=== PATIENT | female | born 1965 | race African-American/Black ===

== ENCOUNTER → 2016-05-27 | Outpatient (CLI) | payer OTHER ==
[~2016-05-27] MED LIST: BENZ2TAB PO; BUSP15TA PO; CIPR-9 PO; DEXA4TAB PO; DIFL150T PO; FURO1TAB62 PO; IBUP-988 PO; IBUP800T23 PO; LIDO0.052; LISI10TA3 PO; MACR100C2 PO; METF500T PO; METO10TA PO; MIRTA15 PO; OMEP20TA PO; ONDA1TAB17 PO; ONDA4INJ2 IM; PEGF6P SQ; PERC5TAB12 PO; PERI8.6T PO; PROM25TA10 PO; PROM25TA5 PO; QUET1TAB10 PO; TRAM50TA PO; ZYPR10TA PO
[2016-05-27 13:46] LABS: BASOPHIL # 0.1 TH/MM3 (0-0.2); EOSINOPHIL # 0.2 TH/MM3 (0-0.4); EOSINOPHIL % 2.2 % (0.0-4.0); HEMATOCRIT 36.4 % (35.0-46.0); HEMO FLAGS DIFF FINAL; LYMPH % 33.9 % (9.0-44.0); LYMPHOCYTE # 2.5 TH/MM3 (1.0-4.8); MEAN CELL VOLUME 88.6 FL (80.0-100.0); MEAN CORPUSCULAR HEMOGLOBIN 29.6 PG (27.0-34.0); MEAN CORPUSCULAR HGB CONC 33.4 % (32.0-36.0); MONO % 9.1 % (0.0-8.0); NEUT % 53.8 % (16.0-70.0); PLATELET COUNT 385 TH/MM3 (150-450); RED BLOOD COUNT 4.11 MIL/MM3 (4.00-5.30); RED CELL DISTRIBUTION WIDTH 14.6 % (11.6-17.2); WHITE BLOOD COUNT 7.4 TH/MM3 (4.0-11.0)
[2016-05-27 13:52] LABS: BACTERIA, URINE MOD /hpf; BLOOD, URINE NEG (NEG); GLUCOSE,URINE NEG (NEG); KETONE, URINE NEG (NEG); MUCUS URINE FEW /lpf (OCC); NITRITE,URINE NEG (NEG); SQUAMOUS EPITHELIAL CELL URINE <1 /hpf (0-5); URINE COLOR YELLOW (YELLW/STRAW)
[2016-05-27 13:58] LABS: COMMENT (UR) CULTURE INDICATED; CULTURE IF INDICATED CULTURE INDICATED
[2016-05-27 14:17] LABS: ALKALINE PHOSPHATASE 73 U/L (45-117); ALT (GPT) 13 U/L (10-53); ANION GAP 8 MEQ/L (5-15); AST (GOT) 12 U/L (15-37); BICARBONATE 27.3 MEQ/L (21.0-32.0); BLOOD UREA NITROGEN 6 MG/DL (7-18); CHLORIDE 107 MEQ/L (98-107); GLOMERULAR FILTRATION RATE 115 ML/MIN (>89); GLUCOSE,FASTING 83 MG/DL (74-99); LDL CHOLESTEROL 116 MG/DL (0-99); POTASSIUM 3.5 MEQ/L (3.5-5.1); SODIUM (NA) 142 MEQ/L (136-145); TOTAL BILIRUBIN ADULT 0.5 MG/DL (0.2-1.0)
[2016-05-27 16:28] LABS: HEMOGLOBIN A1a 1.2 %; HEMOGLOBIN A1b 0.8 %; HEMOGLOBIN Ao 84.8 %; HEMOGLOBIN F 1.4 %; HEMOGLOBIN LA1C 1.9 %; HEMOGLOBIN P3 3.6 %
== END ==
LOC: CLAB 13:21
PROVIDERS: ATTEND Family Medicine
DX: E11.9 Type 2 diabetes mellitus without complications (principal); Z23 Encounter for immunization; B37.41 Candidal cystitis and urethritis; Z72.0 Tobacco use; F31.9 Bipolar disorder, unspecified; R82.90 Unspecified abnormal findings in urine
CPT/HCPCS: 36415; 80053; 80061; 81001; 83036; 84443; 85025; 87077; 87086; 87186

== ENCOUNTER → 2016-07-21 | Outpatient (CLI) | payer OTHER ==
[~2016-07-21] MED LIST changes: -CIPR-9 PO; -DIFL150T PO
[2016-07-21 10:55] LABS: BACTERIA, URINE RARE /hpf; BLOOD, URINE NEG (NEG); COMMENT (UR) CULTURE INDICATED; CULTURE IF INDICATED CULTURE INDICATED; GLUCOSE,URINE NEG (NEG); KETONE, URINE NEG (NEG); MUCUS URINE FEW /lpf (OCC); NITRITE,URINE NEG (NEG); SQUAMOUS EPITHELIAL CELL URINE 2 /hpf (0-5); URINE COLOR YELLOW (YELLW/STRAW)
--- NOTE | 2016-07-21 11:16 | RADRPT ---
EXAM DATE/TIME: 07/21/2016 10:36 [facility] COMPARISON: No previous studies available for comparison. INDICATIONS : Weight loss. Patient c/o constipation and bloating MEDICAL HISTORY : None. SURGICAL HISTORY : Tubal ligation. ENCOUNTER: Initial ACUITY: 2 months PAIN SCORE: 5/10 LOCATION: Bilateral Abdomen. FINDINGS: Supine view of the abdomen was performed. The abdominal bowel gas pattern is normal. No abnormal ma sses, calcifications, or organomegaly is seen. Constipation. The osseous structures are unremarkable. CONCLUSION: No acute abnormalities. Sharan Galicia MD on July 21, 2016 at 11:15 Board Certified Radiologist. This report was verified electronically.
== END ==
LOC: CLAB 10:05
PROVIDERS: ATTEND Family Medicine
DX: R10.9 Unspecified abdominal pain (principal); N39.0 Urinary tract infection, site not specified
CPT/HCPCS: 74000; 81001; 87086

== ENCOUNTER → 2016-07-28 | Outpatient (CLI) | payer OTHER ==
[2016-07-28 12:08] LABS: ALT (GPT) 10 U/L (10-53); AST (GOT) 17 U/L (15-37); BETA HCG QUANT 2 MIU/ML (0-5); GAMMA GT LESS THAN 3 U/L (5-55)
== END ==
LOC: CLAB 11:12
PROVIDERS: ATTEND Family Medicine
DX: R14.0 Abdominal distension (gaseous) (principal); R68.81 Early satiety; R63.4 Abnormal weight loss
CPT/HCPCS: 36415; 82977; 84450; 84460; 84702

== ENCOUNTER → 2016-07-29 | Outpatient (CLI) | payer OTHER ==
[~2016-07-29] MED LIST changes: -OMEP20TA PO
--- NOTE | 2016-07-29 10:59 | RADRPT ---
EXAM DATE/TIME: 07/29/2016 09:28 [facility] COMPARISON: No previous studies available for comparison. INDICATIONS : Distended abdomen. MEDICAL HISTORY : Chronic obstructive pulmonary disease. Hypertension. Bipolar. Hyperglycemia. Cervical cancer. Gena betic. Schizophrenic. Substance abuse. SURGICAL HISTORY : Tubal ligation. ENCOUNTER: Initial ACUITY: 3 weeks PAIN SCORE: 0/10 LOCATION: Bilateral upper quadrant MEASUREMENTS: LIVER: 20.4 cm length COMMON DUCT: 4 mm RIGHT KIDNEY: 12.5 x 5.4 x 5.0 cm SPLEEN: 9.4 cm length FINDINGS: LIVER: Liver is enlarged. Normal echotexture without focal lesion or ductal dilatation. Large amount of abdo mirna ascites. COMMON DUCT: No intraluminal mass or stone visualized. GALLBLADDER: Contains no stones, demonstrates no wall thickening or pericholecystic fluid. PANCREAS: The visualized portions are within normal limits. RIGHT KIDNEY: No hydronephrosis, stone or mass. SPLEEN: No focal lesion. Cystic structure right pelvis measures 36 x 36 x 35 mm. CONCLUSION: 1. Large amount of abdominal ascites. 2. Cystic structure right pelvis measures 36 x 36 x 35 mm. 3. Liver is mildly large. Sharan Galicia MD on July 29, 2016 at 10:54 Board Certified Radiologist. This report was verified electronically.
== END ==
LOC: HRAD 08:50
PROVIDERS: ATTEND Family Medicine
DX: R14.0 Abdominal distension (gaseous) (principal)
CPT/HCPCS: 76705

== ENCOUNTER 2016-07-31 10:22 | Emergency (ER) | payer OTHER ==
[~2016-07-31] VITALS: Ht 160 cm; Wt 68.0 kg
[~2016-07-31 10:22] MED LIST changes: -DEXA4TAB PO; -FURO1TAB62 PO; -IBUP-988 PO; -LIDO0.052; -MACR100C2 PO; -METO10TA PO; -MIRTA15 PO; -ONDA1TAB17 PO; -ONDA4INJ2 IM; -PEGF6P SQ; -PERC5TAB12 PO; -PROM25TA10 PO; -PROM25TA5 PO; -TRAM50TA PO
[2016-07-31 10:24] VITALS: BP 117/73; PULSE 98; RESP 17; TEMP 98.1; O2SAT 95
[2016-07-31] MEDS ORDERED: SODIUM CHLOR 0.9% 1000 ML INJ 1,000 ML IV SCH (11:21)
[2016-07-31] MEDS ORDERED: ONDANSETRON HCL 4 MG/2 ML VIAL IV PUSH ONE (11:30)
[2016-07-31] MEDS ORDERED: MORPHINE SULFATE 4 MG/ML INJ IV PUSH ONE (11:30)
[2016-07-31] MEDS ORDERED: FUROSEMIDE 20 MG/2 ML VIAL IV PUSH ONE (11:30)
--- NOTE | 2016-07-31 11:59 | PD ---
HPI Chief Complaint: Abdominal Pain Time Seen by Provider: 11:51 Travel History International Travel<30 days: No Contact w/Intl Traveler<30days: No Traveled to known affect area: No History of Present Illness HPI 51-year-old female that presents to the ED for evaluation of increased swelling and pain in her abdomen. Per patient she has a history of ascites and she follows with Dr. Lloyd. Patient has an order from Dr. Lloyd to have a paracentesis done but per patient the pain is getting too severe for her to wait and she came here instead. Patient comes here with a form that says that she is to have an ultrasound-guided abdomen paracentesis to be diagnostic and therapeutic. Patient states that she is compliant with her medications. Per patient she doesn't know what she is having this fluid build up but when I ask her if she has cirrhosis she states that she doesn't know. She does state having compliant with her medications. Per patient the pain is 8 out of 10. Per patient she's taken ibuprofen for discomfort with minimal relief. Per patient she was help to get her paracentesis done. She denies any bowel movement or urinary issues. She denies any chest pain or shortness of breath. Per patient the pain feels like a pressure. Denies any fevers chills or sweats. Pain does not radiate. Stays in the abdomen. Nothing makes it better or worse. PFSH Past Medical History Hx Anticoagulant Therapy: Yes Arthritis: Yes Asthma: Yes Bipolar Disorder: Yes Anxiety: Yes Depression: Yes Heart Rhythm Problems: No (DENIES) Cancer: Yes (CERVIX) Cardiac Catheterization: No Cardiovascular Problems: Yes High Cholesterol: No Chest Pain: Yes Congestive Heart Failure: No COPD: Yes Diabetes: Yes Patient Takes Glucophage: Yes Diminished Hearing: No Gastrointestinal Disorders: Yes GERD: Yes Headaches: Yes Heparin Induced Thrombocytopen: No Hypertension: Yes Implanted Vascular Access Dvce: No Respiratory: Yes Immunizations Current: Yes Migraines: Yes Schizophrenia: Yes Seizures: Yes ?: Not Menopausal: Yes : 4 Para: 3 Miscarriage: 1 Tubal Ligation: Yes Past Surgical History Coronary Artery Bypass Graft: No Neurologic Surgery: No Other Surgery: No Family History Family Myocardial Infarction: No Social History Alcohol Use: No (hx of etoh abuse, quit 2012) Tobacco Use: Yes (0.5 ppd) Substance Use: No (hx of crack last used last month 2-2017) Allergies-Medications (Allergen,Severity, Reaction): Coded Allergies: No Known Allergies (Verified , 07/02/16) Reported Meds & Prescriptions Reported Meds & Active Scripts Active Lisa-Colace (Sennosides-Docusate Sodium) 8.6-50 Mg Tab 2 Tab PO BID Lisinopril 10 Mg Tab 10 Mg PO DAILY Reported Ibuprofen 800 Mg Tab 800 Mg PO TID Buspirone (Buspirone HCl) 15 Mg Tab 15 Mg PO TID Benztropine (Benztropine Mesylate) 2 Mg Tab 2 Mg PO BID Metformin (Metformin HCl) 500 Mg Tab 500 Mg PO BIDPC With meals Zyprexa (Olanzapine) 10 Mg Tab 10 Mg PO BID Quetiapine (Quetiapine Fumarate) 300 Mg Tab 300 Mg PO HS Review of Systems General / Constitutional: No: Fever, Chills, Weight Gain, Weight Loss, Other Eyes: No: Diploplia, Blurred Vision, Photophobia, Drainage, Redness, Foreign Body Sensation, Pain, Tearing, Blind Spots, Visual changes, Blindness, Other HENT: No: Headaches, Vertigo, Lightheadedness, Sore Throat, Rhinitis, Rhinorrhea, Congestion, Nosebleed, Neck Stiffness, Neck Pain, Masses, Gingival Bleeding, Dental Difficulties, Ear Discharge, Earache, Other Cardiovascular: No: Chest Pain or Discomfort, Palpitations, Irregular Rhythm, Tachycardia, Diaphoresis, Syncope, Dyspnea on exertion, Varicosities, Edema, Cyanosis, Varicosities, Phlebitis, Claudication, Other Respiratory: No: Cough, Shortness of Breath, Wheezing, Sneezing, Orthopnea, Hemoptysis, Stridor, Night Sweats, Pleuritic Pain, Other Gastrointestinal: Positive: Abdominal Pain, Other (ascitis), No: Nausea, Vomiting, Diarrhea, Hematemesis, Hematochezia, Constipation, Changes in Bowel Habits, Indigestion, Dysphagia, Loss of Appetite Genitourinary: No: Urgency, Frequency, Dysuria, Nocturia, Hematuria, Decreased Urinary Output, Oliguria, Hesitancy, Dribbling, Incontinence, Pelvic Pain, Flank Pain, Dyspareunia, Discharge, Dysmenorrhea, Menorrhagia, Metorrhagia, Vaginal Bleeding, Other Musculoskeletal: No: Myalgias, Arthralgias, Limited ROM, Weakness, Cramping, Edema, Pain, Atrophy, Other Skin: No Rash, No Itching, No Dryness, No Lumps, No Hives, No Change in Pigmentation, No Change in nails, No Alopecia, No Lesions, No Breast Lumps, No Breast Tenderness, No Breast Swelling, No Other Neurologic: No: Weakness, Dizziness, Syncope, Focal Abnormalities, Coordination Problem, Tremor, Ataxia, Headache, Change in Mentation, Slurred Speech, Paresthesia, Incontinence, Seizures, Sensory Disturbance, Other Psychiatric: No: Anxiety, Depression, Suicidal Ideations, Disorder of Thought, Mood Disorder, Substance Abuse, Homicidal Ideation, Other Endocrine: No: Heat Intolerance, Cold Intolerance, Polyuria, Polydipsia, Other Hematologic/Lymphatic: No: Easy Bruising, Lymph Node Enlargement, Other Physical Exam Narrative GENERAL: SKIN: Warm and dry. HEAD: Atraumatic. Normocephalic. EYES: Pupils equal and round. No scleral icterus. No injection or drainage. ENT: No nasal bleeding or discharge. Mucous membranes pink and moist. Tongue is midline. No uvula deviation. NECK: Trachea midline. No JVD. CARDIOVASCULAR: Regular rate and rhythm. No murmurs, S3, S4 RESPIRATORY: No accessory muscle use. Clear to auscultation. Breath sounds equal bilaterally. GASTROINTESTINAL: Abdomen soft, non-tender, distended with obvious fluid felt. Hepatic and splenic margins not palpable. MUSCULOSKELETAL: Extremities without clubbing, cyanosis, or edema. No obvious deformities. Full range of motion of the upper and lower extremities bilaterally. 2+ pulses bilaterally. NEUROLOGICAL: Awake and alert. No obvious cranial nerve deficits. Motor grossly within normal limits. Five out of 5 muscle strength in the arms and legs. Normal speech. PSYCHIATRIC: Appropriate mood and affect; insight and judgment normal. Data Data Last Documented VS Vital Signs Date Time Temp Pulse Resp B/P Pulse Ox O2 Delivery O2 Flow Rate FiO2 07/31/16 12:28 18 98 Room Air 07/31/16 10:24 98.1 98 117/73 Orders Complete Blood Count With Diff (07/31/16 11:21) Comprehensive Metabolic Panel (07/31/16 11:21) Lipase (07/31/16 11:21) Prothrombin Time / Inr (Pt) (07/31/16 11:21) Act Partial Throm Time (Ptt) (07/31/16 11:21) Iv Access Insert/Monitor (07/31/16 11:21) Ecg Monitoring (07/31/16 11:21) Oximetry (07/31/16 11:21) Sodium Chlor 0.9% 1000 Ml Inj (Ns 1000 M (07/31/16 11:21) Morphine Inj (Morphine Inj) (07/31/16 11:30) Ondansetron Inj (Zofran Inj) (07/31/16 11:30) Furosemide Inj (Lasix Inj) (07/31/16 11:30) Ct Abd/Pel W Iv Contrast(Rout) (07/31/16 ) Labs Laboratory Tests Test 07/31/16 12:10 White Blood Count 7.2 TH/MM3 Red Blood Count 3.52 MIL/MM3 Hemoglobin 10.3 GM/DL Hematocrit 30.9 % Mean Corpuscular Volume 87.8 FL Mean Corpuscular Hemoglobin 29.2 PG Mean Corpuscular Hemoglobin 33.2 % Concent Red Cell Distribution Width 14.3 % Platelet Count 541 TH/MM3 Mean Platelet Volume 7.4 FL Neutrophils (%) (Auto) 66.1 % Lymphocytes (%) (Auto) 22.7 % Monocytes (%) (Auto) 7.7 % Eosinophils (%) (Auto) 2.8 % Basophils (%) (Auto) 0.7 % Neutrophils # (Auto) 4.7 TH/MM3 Lymphocytes # (Auto) 1.6 TH/MM3 Monocytes # (Auto) 0.5 TH/MM3 Eosinophils # (Auto) 0.2 TH/MM3 Basophils # (Auto) 0.0 TH/MM3 CBC Comment DIFF FINAL Differential Comment Sodium Level 140 MEQ/L Potassium Level 4.0 MEQ/L Chloride Level 106 MEQ/L Carbon Dioxide Level 27.0 MEQ/L Anion Gap 7 MEQ/L Blood Urea Nitrogen 8 MG/DL Creatinine 0.68 MG/DL Estimat Glomerular Filtration 110 ML/MIN Rate Random Glucose 87 MG/DL Calcium Level 8.6 MG/DL Total Bilirubin 0.2 MG/DL Aspartate Amino Transf 16 U/L (AST/SGOT) Alanine Aminotransferase 9 U/L (ALT/SGPT) Alkaline Phosphatase 84 U/L Total Protein 8.3 GM/DL Albumin 2.6 GM/DL Lipase 63 U/L [facility] Medical Decision Making Medical Screen Exam Complete: Yes Emergency Medical Condition: Yes Medical Record Reviewed: Yes Interpretation(s) CBC & BMP Diagram 07/31/16 12:10 LFTs WNL Lipase WNL Differential Diagnosis Ascites versus liver cirrhosis versus acute on chronic pain versus infection Narrative Course 51-year-old female that presents to the ED for evaluation of abdominal discomfort with fluid overload. Patient was properly examined and was found to have signs and symptoms consistent with ascites. She is followed by Dr. Lloyd at the [facility] and she actually has already or ultrasound- guided abdominal paracentesis. There is no date of when she is supposed to get this. Patient states that she is mainly here for pain control. Patient was given something for pain here as well as some Lasix to help with the fluid. Vitals and physical exam at this time are reassuring. I recommend patient that she calls or just goes to the outpatient radiology/testing center to get this done in the next couple of days so she can get relief from her symptoms. She agrees and understands. Case was discussed in my attending Dr. Fairchild who agrees with discharge and follow-up outpatient. Patient was given a short prescription for tramadol for pain. She was instructed to try to avoid ibuprofen as this could make the ascites worse. Follow-up with PCP. See ED if worsening symptoms. Diagnosis Primary Impression: Ascites Qualified Code: R18.8 - Other ascites Patient Instructions: General Instructions, Narcotic given in the ED Additional Instructions: Follow with outpatient radiology to get procedure done. Call today or [facility] to get this done today or tomorrow. Take pain medication as prescribed. Follow with PCP. See ED for any worsening symptoms. Med/Other Pt SpecificInfo: Prescription(s) given Disposition: DISCHARGE HOME Condition: Stable Rosales Galeas Jul 31, 2016 11:59
[2016-07-31 12:28] VITALS: RESP 18; O2SAT 98
[2016-07-31 12:28] LABS: AUTOMATED NEUTROPHIL # 4.7 TH/MM3 (1.8-7.7); BASOPHIL % 0.7 % (0.0-2.0); EOSINOPHIL # 0.2 TH/MM3 (0-0.4); EOSINOPHIL % 2.8 % (0.0-4.0); HEMATOCRIT 30.9 % (35.0-46.0); HEMO FLAGS DIFF FINAL; LYMPH % 22.7 % (9.0-44.0); LYMPHOCYTE # 1.6 TH/MM3 (1.0-4.8); MEAN CELL VOLUME 87.8 FL (80.0-100.0); MEAN CORPUSCULAR HEMOGLOBIN 29.2 PG (27.0-34.0); MEAN CORPUSCULAR HGB CONC 33.2 % (32.0-36.0); MONO % 7.7 % (0.0-8.0); NEUT % 66.1 % (16.0-70.0); PLATELET COUNT 541 TH/MM3 (150-450); RED BLOOD COUNT 3.52 MIL/MM3 (4.00-5.30); RED CELL DISTRIBUTION WIDTH 14.3 % (11.6-17.2); WHITE BLOOD COUNT 7.2 TH/MM3 (4.0-11.0)
[2016-07-31 12:46] LABS: ANION GAP 7 MEQ/L (5-15); AST (GOT) 16 U/L (15-37); BLOOD UREA NITROGEN 8 MG/DL (7-18); CHLORIDE 106 MEQ/L (98-107); GLOMERULAR FILTRATION RATE 110 ML/MIN (>89); SODIUM (NA) 140 MEQ/L (136-145)
[2016-07-31 12:51] LABS: ALKALINE PHOSPHATASE 84 U/L (45-117); ALT (GPT) 9 U/L (10-53); TOTAL BILIRUBIN ADULT 0.2 MG/DL (0.2-1.0)
[2016-07-31] MEDS ORDERED: TRAM50TA PO (13:13)
[2016-07-31 13:18] LABS: APTT (PATIENT) 26.3 SEC (24.3-30.1); INTERNATIONAL NORMALIZED RATIO 1.1 RATIO; PROTHROMBIN TIME - PATIENT 11.7 SEC (9.8-11.6)
[2016-08-11] MEDS ORDERED: FURO1TAB62 PO (11:20)
[2016-08-11] MEDS ORDERED: METF500T PO (11:20)
[2016-08-11] MEDS ORDERED: LISI10TA3 PO (11:20)
[2016-09-04] MEDS ORDERED: IBUP-988 PO (10:09)
[2016-10-30] MEDS ORDERED: PEGF6P SQ (16:26)
[2016-10-30] MEDS ORDERED: PROM25TA10 PO (16:26)
[2016-10-30] MEDS ORDERED: ONDA4INJ2 IM (16:56)
[2016-11-11] MEDS ORDERED: MIRTA15 PO (11:24)
[2016-11-11] MEDS ORDERED: IBUP800T23 PO (12:46)
== END 2016-07-31 13:46 | disposition home or self-care (01) ==
LOC: NEPE 10:22
DX: R18.8 Other ascites (principal); F17.210 Nicotine dependence, cigarettes, uncomplicated; E11.9 Type 2 diabetes mellitus without complications; I10 Essential (primary) hypertension; Z79.84 Long term (current) use of oral hypoglycemic drugs; Z79.01 Long term (current) use of anticoagulants
CPT/HCPCS: 80053; 83690; 85025; 85610; 85730; 96374; 96375; 99284; J1940; J2270; J2405; J7030

== ENCOUNTER 2016-07-31 14:54 | Day surgery (SDC) | payer OTHER ==
[~2016-07-31 14:54] MED LIST changes: +TRAM50TA PO
[2016-07-31 15:44] VITALS: BP 112/73; PULSE 94; RESP 16; TEMP 99.6; O2SAT 96
[2016-07-31 17:05] VITALS: BP 133/90; PULSE 88; RESP 18; TEMP 98.9; O2SAT 94
[2016-07-31 17:20] VITALS: BP 141/90; PULSE 88; RESP 18; O2SAT 94
--- NOTE | 2016-07-31 17:37 | RADRPT ---
EXAM DATE/TIME: 07/31/2016 15:45 [facility] COMPARISON: No previous studies available for comparison. INDICATIONS : Ascites. MEDICAL HISTORY : Chronic obstructive pulmonary disease. Hypertension. Bipolar. Hyperglycemia. Cervical cancer. Diabeti c. Schizophrenic. Substance abuse. SURGICAL HISTORY : Tubal ligation. ENCOUNTER: Initial ACUITY: 1 month PAIN SCORE: 8/10 LOCATION: Left lower quadrant FLUID: Total volume of 4100 cc of reddish yellow. fluid was removed. Fluid was sent to lab for ordered studies. Post procedure scanning reveals no hematoma or other complication. TECHNIQUE: 1. Ultrasound guidance for abdominal paracentesis. 2. Paracentesis. The risks, benefits, and alternatives to ultrasound guided paracentesis were explained to the patient in detail including the risk of bleeding and infection. Written and verbal informed consent was obt ained. With the patient on the ultrasound table, ultrasound imaging was used to select the most appropriate approach for paracentesis. Overlying skin was prepped and draped in the usual sterile fashion and wi th a local anesthetic, a dermatotomy was made with an 11 blade scalpel. A 6 [place] [id number] ca theter was introduced into the peritoneal cavity and fluid was collected. The patient tolerated the procedure well and left the ultrasound suite in stable condition. CONCLUSION: Uncomplicated ultrasound guided paracentesis. There is a small volume of residual fluid present at t he end of the procedure. Martin Mckenzie MD on July 31, 2016 at 17:35 Board Certified Radiologist. This report was verified electronically.
[2016-08-11] MEDS ORDERED: FURO1TAB62 PO (11:20)
[2016-08-11] MEDS ORDERED: METF500T PO (11:20)
[2016-08-11] MEDS ORDERED: LISI10TA3 PO (11:20)
[2016-09-04] MEDS ORDERED: IBUP-988 PO (10:09)
[2016-10-30] MEDS ORDERED: PEGF6P SQ (16:26)
[2016-10-30] MEDS ORDERED: PROM25TA10 PO (16:26)
[2016-10-30] MEDS ORDERED: ONDA4INJ2 IM (16:56)
[2016-11-11] MEDS ORDERED: MIRTA15 PO (11:24)
[2016-11-11] MEDS ORDERED: IBUP800T23 PO (12:46)
== END 2016-07-31 17:45 | disposition home or self-care (01) ==
LOC: HRAD 14:54
PROVIDERS: ATTEND Family Medicine
DX: R18.8 Other ascites (principal); I10 Essential (primary) hypertension; E11.9 Type 2 diabetes mellitus without complications; J44.9 Chronic obstructive pulmonary disease, unspecified; Z85.41 Personal history of malignant neoplasm of cervix uteri
CPT/HCPCS: 49083; 82042; 82945; 83615; 84157; 87070; 87205; C1729

== ENCOUNTER → 2016-07-31 | Outpatient (CLI) | payer OTHER ==
[2016-07-31 08:42] LABS: PROTHROMBIN TIME - PATIENT 11.6 SEC (9.8-11.6)
[2016-07-31 09:37] LABS: AUTOMATED NEUTROPHIL # 5.5 TH/MM3 (1.8-7.7); BASOPHIL # 0.1 TH/MM3 (0-0.2); BASOPHIL % 1.1 % (0.0-2.0); EOSINOPHIL # 0.2 TH/MM3 (0-0.4); EOSINOPHIL % 2.5 % (0.0-4.0); HEMATOCRIT 31.3 % (35.0-46.0); HEMO FLAGS DIFF FINAL; LYMPH % 23.7 % (9.0-44.0); LYMPHOCYTE # 2.1 TH/MM3 (1.0-4.8); MEAN CELL VOLUME 88.3 FL (80.0-100.0); MEAN CORPUSCULAR HEMOGLOBIN 29.3 PG (27.0-34.0); MEAN CORPUSCULAR HGB CONC 33.1 % (32.0-36.0); MONO % 8.8 % (0.0-8.0); NEUT % 63.9 % (16.0-70.0); PLATELET COUNT 494 TH/MM3 (150-450); RED BLOOD COUNT 3.54 MIL/MM3 (4.00-5.30); RED CELL DISTRIBUTION WIDTH 13.9 % (11.6-17.2); WHITE BLOOD COUNT 8.7 TH/MM3 (4.0-11.0)
[2016-07-31 10:06] LABS: ALKALINE PHOSPHATASE 85 U/L (45-117); ALT (GPT) 19 U/L (10-53); ANION GAP 8 MEQ/L (5-15); AST (GOT) 16 U/L (15-37); BICARBONATE 27.1 MEQ/L (21.0-32.0); BLOOD UREA NITROGEN 8 MG/DL (7-18); CHLORIDE 105 MEQ/L (98-107); GLOMERULAR FILTRATION RATE 102 ML/MIN (>89); GLUCOSE,FASTING 91 MG/DL (74-99); POTASSIUM 4.3 MEQ/L (3.5-5.1); SODIUM (NA) 140 MEQ/L (136-145); TOTAL BILIRUBIN ADULT 0.2 MG/DL (0.2-1.0)
== END ==
LOC: CLAB 08:12
PROVIDERS: ATTEND Family Medicine
DX: R18.8 Other ascites (principal)
CPT/HCPCS: 36415; 80053; 85025; 85610

== ENCOUNTER → 2016-08-05 | Outpatient (CLI) | payer OTHER ==
[~2016-08-05] MED LIST changes: +DEXA4TAB PO; +FURO1TAB62 PO; +IBUP-988 PO; +LIDO0.052; +MACR100C2 PO; +METO10TA PO; +MIRTA15 PO; +ONDA1TAB17 PO; +ONDA4INJ2 IM; +PEGF6P SQ; +PERC5TAB12 PO; +PROM25TA10 PO; +PROM25TA5 PO
--- NOTE | 2016-08-05 10:57 | RADRPT ---
EXAM DATE/TIME: 08/05/2016 10:41 [facility] COMPARISON: CHEST PA & LAT, August 19, 2015, 15:46. INDICATIONS : Asthma, short of breath. MEDICAL HISTORY : Asthma, SURGICAL HISTORY : Ovarian cyst, acities ENCOUNTER: Initial ACUITY: 1 day PAIN SCORE: 1/10 LOCATION: Bilateral chest FINDINGS: PA and lateral views of the chest demonstrate bibasilar subsegmental atelectasis without evidence of mass, infiltrate or effusion. The cardiomediastinal contours are unremarkable. Osseous structures a re intact. CONCLUSION: Bibasilar subsegmental atelectasis. Sharan Galicia MD on August 05, 2016 at 10:55 Board Certified Radiologist. This report was verified electronically.
== END ==
LOC: CLAB 09:59
PROVIDERS: ATTEND Family Medicine
DX: R18.8 Other ascites (principal); N83.209 Unspecified ovarian cyst, unspecified side; F17.200 Nicotine dependence, unspecified, uncomplicated
CPT/HCPCS: 36415; 71020; 82105; 86304

== ENCOUNTER 2016-08-11 12:12 | Emergency (ER) | payer OTHER ==
[~2016-08-11] VITALS: Ht 160 cm; Wt 66.0 kg
[~2016-08-11 12:12] MED LIST changes: -DEXA4TAB PO; -IBUP-988 PO; -LIDO0.052; -MACR100C2 PO; -METO10TA PO; -MIRTA15 PO; -ONDA1TAB17 PO; -ONDA4INJ2 IM; -PEGF6P SQ; -PERC5TAB12 PO; -PROM25TA10 PO; -PROM25TA5 PO
[2016-08-11 12:15] VITALS: BP 111/74; PULSE 92; RESP 24; TEMP 97.5; O2SAT 96
[2016-08-11] MEDS ORDERED: SODIUM CHLORIDE 0.9% FLUSH 5 ML FLUSH IVF PRN (15:30)
[2016-08-11 15:33] VITALS: RESP 16; O2SAT 96
[2016-08-11] MEDS ORDERED: ONDANSETRON HCL 4 MG/2 ML VIAL IM ONE (15:45)
[2016-08-11] MEDS ORDERED: MORPHINE SULFATE 4 MG/ML INJ IV PUSH ONE (15:45)
[2016-08-11] MEDS ORDERED: MORPHINE SULFATE 4 MG/ML INJ IM ONE (15:45)
[2016-08-11] MEDS ORDERED: ONDANSETRON HCL 4 MG/2 ML VIAL IV PUSH ONE (15:45)
[2016-08-11] MEDS ORDERED: FUROSEMIDE 20 MG/2 ML VIAL IV PUSH ONE (15:45)
[2016-08-11] MEDS ORDERED: TRAM50TA PO (16:02)
--- NOTE | 2016-08-11 16:09 | PD ---
HPI Chief Complaint: Abdominal Pain Time Seen by Provider: 16:07 Travel History International Travel<30 days: No Contact w/Intl Traveler<30days: No Traveled to known affect area: No History of Present Illness HPI 51-year-old female that presents to the ED for evaluation of abdominal pain. Patient has a history of ascites. Patient follows up with Dr. Nichols and was seen today for evaluation of her ascites and they ordered a paracenthesis for her tomorrow. She is also supposed to have a CT of the abdomen on Thursday for evaluation of why she is having this issues. Patient states that her doctor did not give her anything for pain and this is the main reason she is here. Per patient she has no other complaints other than the pain. Per patient her pain or her abdomen is 10 out of 10. Per patient the paracentesis of last week did help with the pain but she states that she filled up again. She denies any fevers chills or sweats. She states that the medication I gave her last time did help somewhat with her pain until she was able to get her paracentesis. She denies any shortness of breath. No chest pain. No new symptoms. She states that the pain comes and goes but is most severe with touch. PFSH Past Medical History Hx Anticoagulant Therapy: Yes Arthritis: Yes Asthma: Yes Bipolar Disorder: Yes Anxiety: Yes Depression: Yes Heart Rhythm Problems: No (DENIES) Cancer: Yes (CERVIX) Cardiac Catheterization: No Cardiovascular Problems: Yes High Cholesterol: No Chest Pain: Yes Congestive Heart Failure: No COPD: Yes Diabetes: Yes Patient Takes Glucophage: No Diminished Hearing: No Gastrointestinal Disorders: Yes GERD: Yes Headaches: Yes Heparin Induced Thrombocytopen: No Hypertension: Yes Implanted Vascular Access Dvce: No Respiratory: Yes Immunizations Current: Yes Migraines: Yes Schizophrenia: Yes Seizures: Yes Influenza Vaccination: Yes ?: Not Menopausal: Yes : 4 Para: 3 Miscarriage: 1 Tubal Ligation: Yes Past Surgical History Coronary Artery Bypass Graft: No Neurologic Surgery: No Other Surgery: Yes (PARACENTESIS) Social History Alcohol Use: No (hx of etoh abuse, quit 2012) Tobacco Use: Yes (0.5 ppd) Substance Use: No (hx of crack last used last month ) Allergies-Medications (Allergen,Severity, Reaction): Coded Allergies: No Known Allergies (Verified , 08/11/16) Reported Meds & Prescriptions Reported Meds & Active Scripts Active Tramadol (Tramadol HCl) 50 Mg Tab 50 Mg PO Q6H PRN Lisinopril 10 Mg Tab 10 Mg PO DAILY Metformin (Metformin HCl) 500 Mg Tab 500 Mg PO BIDPC With meals Lasix (Furosemide) 20 Mg Tab 20 Mg PO BID Tramadol (Tramadol HCl) 50 Mg Tab 50 Mg PO Q6H PRN Lisa-Colace (Sennosides-Docusate Sodium) 8.6-50 Mg Tab 2 Tab PO BID Reported Ibuprofen 800 Mg Tab 800 Mg PO TID Buspirone (Buspirone HCl) 15 Mg Tab 15 Mg PO TID Benztropine (Benztropine Mesylate) 2 Mg Tab 2 Mg PO BID Zyprexa (Olanzapine) 10 Mg Tab 10 Mg PO BID Quetiapine (Quetiapine Fumarate) 300 Mg Tab 300 Mg PO HS Review of Systems Except as stated in HPI: all other systems reviewed are Neg Physical Exam Narrative GENERAL: SKIN: Warm and dry. HEAD: Atraumatic. Normocephalic. EYES: Pupils equal and round. No scleral icterus. No injection or drainage. ENT: No nasal bleeding or discharge. Mucous membranes pink and moist. NECK: Trachea midline. No JVD. CARDIOVASCULAR: Regular rate and rhythm. No murmurs, S3, S4. RESPIRATORY: No accessory muscle use. Clear to auscultation. Breath sounds equal bilaterally. GASTROINTESTINAL: Abdomen soft, diffusely tender, distended with fluid palpated. Hepatic and splenic margins not palpable. MUSCULOSKELETAL: Extremities without clubbing, cyanosis, or edema. No obvious deformities. Full range of motion of the upper and lower extremities bilaterally. 2+ pulses bilaterally. NEUROLOGICAL: Awake and alert. No obvious cranial nerve deficits. Motor grossly within normal limits. Five out of 5 muscle strength in the arms and legs. Normal speech. PSYCHIATRIC: Appropriate mood and affect; insight and judgment normal. Data Data Last Documented VS Vital Signs Date Time Temp Pulse Resp B/P Pulse Ox O2 Delivery O2 Flow Rate FiO2 08/11/16 15:33 16 96 Room Air 08/11/16 12:15 97.5 92 111/74 Orders Ecg Monitoring (08/11/16 15:28) Oximetry (08/11/16 15:28) Sodium Chloride 0.9% Flush (Ns Flush) (08/11/16 15:30) Morphine Inj (Morphine Inj) (08/11/16 15:45) Ondansetron Inj (Zofran Inj) (08/11/16 15:45) Furosemide Inj (Lasix Inj) (08/11/16 15:45) Morphine Inj (Morphine Inj) (08/11/16 15:45) Ondansetron Inj (Zofran Inj) (08/11/16 15:45) MDM Medical Decision Making Medical Screen Exam Complete: Yes Emergency Medical Condition: Yes Medical Record Reviewed: Yes Differential Diagnosis Ascites versus acute on chronic pain versus chronic pain versus abdominal pain Narrative Course 51-year-old female that presents to the ED for evaluation of abdominal pain. Patient was properly examined and was found to have signs and symptoms consistent with appears to be acute on chronic pain. No sign of acute disease. No sign of infection. Exam is benign other than for ascites and fluid build- up on the abdomen. She already has an appointment for paracentesis tomorrow. I do not see any need for new labs at this time. Patient is already getting the proper treatment and follow-up. Patient is here mainly for pain control. This time I think is reasonable to give patient IM dose of pain medication. Patient is agreeable with this plan. Patient was given IM morphine and Zofran. Patient was discharged with prescription for tramadol. She was instructed to get her paracentesis done tomorrow. She agrees and understands. She understands that she needs to follow up with her doctor and get her CT done so she can have follow-up and see what needs to be done for her ascites build-up. She agrees and understands. Case discussed in my attending who agrees with plan. Again at this time I do not see any sign of acute infection or severe illness this appears to be chronic to the ascites. Follow with PCP. See ED worsening symptoms. Diagnosis Primary Impression: Ascites Qualified Code: R18.8 - Other ascites Patient Instructions: Narcotic given in the ED, General Instructions Additional Instructions: Take medications as prescribed. Follow-up with PCP. See ED for any worsening symptoms. Do not drink or drive while taking pain medication. Apply ice or heat as needed for pain. Get your paracentesis done tomorrow Med/Other Pt SpecificInfo: Prescription(s) given Scripts Tramadol 50 Mg Tab50 Mg PO Q6H PRN (PAIN) #15 TAB Ref 0 Prov:Smith Ramirez MD 08/11/16 Disposition: 01 DISCHARGE HOME Condition: Stable Rosales Galeas Aug 11, 2016 16:09
[2016-09-04] MEDS ORDERED: IBUP-988 PO (10:09)
[2016-10-30] MEDS ORDERED: PEGF6P SQ (16:26)
[2016-10-30] MEDS ORDERED: PROM25TA10 PO (16:26)
[2016-10-30] MEDS ORDERED: ONDA4INJ2 IM (16:56)
[2016-11-11] MEDS ORDERED: MIRTA15 PO (11:24)
[2016-11-11] MEDS ORDERED: IBUP800T23 PO (12:46)
== END 2016-08-11 16:32 | disposition home or self-care (01) ==
LOC: NEPE 12:12
DX: R18.8 Other ascites (principal); J45.909 Unspecified asthma, uncomplicated; E11.9 Type 2 diabetes mellitus without complications; I10 Essential (primary) hypertension; Z79.01 Long term (current) use of anticoagulants
CPT/HCPCS: 96372; 99283; J2270; J2405

== ENCOUNTER 2016-08-12 08:10 | Day surgery (SDC) | payer OTHER ==
[2016-08-12 08:36] VITALS: BP 105/75; PULSE 81; RESP 16; TEMP 98.1; O2SAT 95
[2016-08-12 10:00] VITALS: BP 135/93; PULSE 79; RESP 16; TEMP 98.7; O2SAT 99
[2016-08-12] MEDS ORDERED: ALBUMIN HUMAN 25% 25GM-W/12.5GM FOR 37.5GM IV ONE (10:00)
[2016-08-12] MEDS ORDERED: ALBUMIN HUMAN 25% 12.5GM-W/25GM FOR 37.5GM IV ONE (10:00)
[2016-08-12 10:30] VITALS: BP 115/76; PULSE 76; RESP 16; O2SAT 99
--- NOTE | 2016-08-12 11:19 | RADRPT ---
EXAM DATE/TIME: 08/12/2016 08:38 [facility] COMPARISON: US GUIDED ABD PARACENTESIS, July 31, 2016, 15:45. INDICATIONS : Ascites. MEDICAL HISTORY : Chronic obstructive pulmonary disease. Hypertension. Hyperglycemia. Cervical cancer. Diabetic. Schiz ophrenic. Substance abuse. Bipolar. SURGICAL HISTORY : Tubal ligation. ENCOUNTER: Subsequent ACUITY: 1 week PAIN SCORE: 4/10 LOCATION: Right lower quadrant FLUID: Total volume of 6,700 cc of clear, yellow fluid was removed. Fluid was discarded. Paracentesis was therapeutic only. Post procedure scanning reveals no hematoma or other complication. TECHNIQUE: 1. Ultrasound guidance for abdominal paracentesis. 2. Paracentesis. The risks, benefits, and alternatives to ultrasound guided paracentesis were explained to the patient in detail including the risk of bleeding and infection. Written and verbal informed consent was obt ained. With the patient on the ultrasound table, ultrasound imaging was used to select the most appropriate approach for paracentesis. Overlying skin was prepped and draped in the usual sterile fashion and wi th a local anesthetic, a dermatotomy was made with an 11 blade scalpel. A 6 [place] [id number] ca theter was introduced into the peritoneal cavity and fluid was collected. The patient tolerated the procedure well and left the ultrasound suite in stable condition. CONCLUSION: Uncomplicated ultrasound guided paracentesis. Rufino Dyer MD on August 12, 2016 at 11:17 Board Certified Radiologist. This report was verified electronically.
[2016-08-12] MEDS ORDERED: LIDOCAINE HCL 1% PF 30 ML VIAL ONE (11:22)
[2016-08-12] MEDS ORDERED: SODIUM BICARBONATE 8.4% INJ 50 ML ONE (11:22)
[2016-09-04] MEDS ORDERED: IBUP-988 PO (10:09)
[2016-10-30] MEDS ORDERED: PEGF6P SQ (16:26)
[2016-10-30] MEDS ORDERED: PROM25TA10 PO (16:26)
[2016-10-30] MEDS ORDERED: ONDA4INJ2 IM (16:56)
[2016-11-11] MEDS ORDERED: MIRTA15 PO (11:24)
[2016-11-11] MEDS ORDERED: IBUP800T23 PO (12:46)
== END 2016-08-12 10:45 | disposition home or self-care (01) ==
LOC: HRAD 08:10 → HRIP 08:13 → HRAD 10:45
PROVIDERS: ATTEND Family Medicine
DX: R18.8 Other ascites (principal); C53.9 Malignant neoplasm of cervix uteri, unspecified; I10 Essential (primary) hypertension; E11.9 Type 2 diabetes mellitus without complications; J44.9 Chronic obstructive pulmonary disease, unspecified
CPT/HCPCS: 49083; 96365; C1729; P9047

== ENCOUNTER → 2016-08-13 | Outpatient (CLI) | payer OTHER ==
[~2016-08-13] MED LIST changes: +DEXA4TAB PO; +IBUP-988 PO; +IOHEXOL 350 MG/ML 10 ML VIAL (for RAD DIAG) IV ONE; +LIDO0.052; +MACR100C2 PO; +METO10TA PO; +MIRTA15 PO; +ONDA1TAB17 PO; +ONDA4INJ2 IM; +PEGF6P SQ; +PERC5TAB12 PO; +PROM25TA10 PO; +PROM25TA5 PO
--- NOTE | 2016-08-13 16:10 | RADRPT ---
EXAM DATE/TIME: 08/13/2016 14:29 [facility] COMPARISON: No previous studies available for comparison. INDICATIONS : Abdomen pain, ascities,ovarian cyst. IV CONTRAST: 70 cc Omnipaque 350 (iohexol) IV ORAL CONTRAST: No oral contrast ingested. RADIATION DOSE: 9.96 CTDIvol (mGy) MEDICAL HISTORY : Cardiovascular disease. Chronic obstructive pulmonary disease. Diabetes mellitus type 2. SURGICAL HISTORY : Hysterectomy. ENCOUNTER: Initial ACUITY: 1 day PAIN SCALE: 2/10 LOCATION: abdomen TECHNIQUE: Volumetric scanning of the abdomen and pelvis was performed. Using automated exposure control and ad justment of the mA and/or kV according to patient size, radiation dose was kept as low as reasonably achievable to obtain optimal diagnostic quality images. FINDINGS: There is abundant ascites. Complex cystic and solid masses encompass the pelvis in both adnexal regio ns. There is extensive soft tissue omental disease. Solid peritoneal implants are seen along the pelv ic sidewall and elsewhere in the abdomen. The liver, spleen, pancreas, adrenals and kidneys are unremarkable. The bowel structures are nondilat ed. The bony elements are benign in appearance. CONCLUSION: Bilateral cystic and solid adnexal masses and multifocal peritoneal carcinomatosis with widespread as cites. Martin Sullivan MD on August 13, 2016 at 16:04 Board Certified Radiologist. This report was verified electronically.
== END ==
LOC: HRAD 12:51
PROVIDERS: ATTEND Family Medicine
DX: R18.8 Other ascites (principal); N83.209 Unspecified ovarian cyst, unspecified side
CPT/HCPCS: 74177; Q9967

== ENCOUNTER → 2016-08-18 | Outpatient (CLI) | payer OTHER ==
[~2016-08-18] MED LIST changes: -IOHEXOL 350 MG/ML 10 ML VIAL (for RAD DIAG) IV ONE
--- NOTE | 2016-08-18 12:03 | RADRPT ---
EXAM DATE/TIME: 08/18/2016 10:37 [facility] COMPARISON: No previous studies available for comparison. INDICATIONS : Dysphagia for 3 to 4 months, solid food can become lodged in throat and may cause vomiting, weight lo ss, ascites FLUORO TIME: 1.0 minutes IMAGE COUNT: 14 CONTRAST: 1. Liquid E-Z Paque Barium Sulfate (60% w/v, 41% w.w) MEDICAL HISTORY : Dysphagia, ascites SURGICAL HISTORY : None. ENCOUNTER: Initial ACUITY: 3 months PAIN SCORE: 0/10 LOCATION: Bilateral esophagus FINDINGS: Sitting films of cervical esophagus reveal a prominent pyriformis that relaxes completely. There is minimal posterior impingement on the cervical esophagus by degenerative changes. The thoracic esophagus appears normal. There are constricting or obstructing lesions identified in t he thoracic esophagus. CONCLUSION: Somewhat limited barium swallow showing only a prominent pyriformis. I do not see a constricting or obstructing mass. Sly Damon MD FACR on August 18, 2016 at 11:49 Board Certified Radiologist. This report was verified electronically.
== END ==
LOC: HRAD 10:26
PROVIDERS: ATTEND Family Medicine
DX: R13.10 Dysphagia, unspecified (principal); R63.0 Anorexia; R18.8 Other ascites
CPT/HCPCS: 74230

== ENCOUNTER → 2016-08-18 | Outpatient (CLI) | payer OTHER ==
[2016-08-18 10:53] LABS: RHEUMATOID FACTOR TRIGGER LESS THAN 10.0 IU/ML (0.0-14.9)
== END ==
LOC: CLAB 10:01
PROVIDERS: ATTEND Family Medicine
DX: M06.9 Rheumatoid arthritis, unspecified (principal)
CPT/HCPCS: 36415; 86430

== ENCOUNTER 2016-08-25 09:39 | Day surgery (SDC) | payer OTHER ==
[~2016-08-25 09:39] MED LIST changes: -DEXA4TAB PO; -IBUP-988 PO; -LIDO0.052; -MACR100C2 PO; -METO10TA PO; -MIRTA15 PO; -ONDA1TAB17 PO; -ONDA4INJ2 IM; -PEGF6P SQ; -PERC5TAB12 PO; -PROM25TA10 PO; -PROM25TA5 PO
[2016-08-25 09:40] LABS: AUTOMATED NEUTROPHIL # 5.2 TH/MM3 (1.8-7.7); BASOPHIL # 0.1 TH/MM3 (0-0.2); BASOPHIL % 1.3 % (0.0-2.0); EOSINOPHIL # 0.4 TH/MM3 (0-0.4); EOSINOPHIL % 4.5 % (0.0-4.0); HEMATOCRIT 35.4 % (35.0-46.0); HEMO FLAGS DIFF FINAL; LYMPH % 23.2 % (9.0-44.0); LYMPHOCYTE # 1.9 TH/MM3 (1.0-4.8); MEAN CELL VOLUME 86.7 FL (80.0-100.0); MEAN CORPUSCULAR HEMOGLOBIN 27.5 PG (27.0-34.0); MEAN CORPUSCULAR HGB CONC 31.7 % (32.0-36.0); MONO % 7.2 % (0.0-8.0); NEUT % 63.8 % (16.0-70.0); PLATELET COUNT 518 TH/MM3 (150-450); RED BLOOD COUNT 4.09 MIL/MM3 (4.00-5.30); RED CELL DISTRIBUTION WIDTH 14.5 % (11.6-17.2); WHITE BLOOD COUNT 8.1 TH/MM3 (4.0-11.0)
[2016-08-25 09:50] LABS: APTT (PATIENT) 28.8 SEC (24.3-30.1); PROTHROMBIN TIME - PATIENT 11.1 SEC (9.8-11.6)
[2016-08-25 10:04] VITALS: BP 112/79; PULSE 83; RESP 18; TEMP 98.7; O2SAT 94
[2016-08-25] MEDS ORDERED: ALBUMIN HUMAN 25% 25 GM/100 ML BAGP IV ONE (10:30)
[2016-08-25 11:25] VITALS: BP 107/71; PULSE 79; RESP 18; TEMP 98.6; O2SAT 99
--- NOTE | 2016-08-25 11:32 | RADRPT ---
EXAM DATE/TIME: 08/25/2016 09:52 [facility] COMPARISON: US GUIDED ABD PARACENTESIS, August 12, 2016, 8:38. INDICATIONS : Ascites. MEDICAL HISTORY : Hypertension. Chronic obstructive pulmonary disease. Arthritis. Cervical cancer. Seizures. Head traum a as child. Migraines. Chest pain. Asthma. Dyspnea. Diabetes. GERD. Schizophrenia. Bipolar. Depressio n. Anxiety. Substanuce use. Anticoagulant therapy. SURGICAL HISTORY : Tubal ligation. Hysterectomy. Paracentesis. ENCOUNTER: Subsequent ACUITY: 2 weeks PAIN SCORE: 0/10 LOCATION: Right lower quadrant FLUID: Total volume of 5,000 cc of clear, yellowbrownish fluid was removed. Fluid was discarded. Paracentesis was therapeutic only. Post procedure scanning reveals no hematoma or other complication. TECHNIQUE: 1. Ultrasound guidance for abdominal paracentesis. 2. Paracentesis. The risks, benefits, and alternatives to ultrasound guided paracentesis were explained to the patient in detail including the risk of bleeding and infection. Written and verbal informed consent was obt ained. With the patient on the ultrasound table, ultrasound imaging was used to select the most appropriate approach for paracentesis. Overlying skin was prepped and draped in the usual sterile fashion and wi th a local anesthetic, a dermatotomy was made with an 11 blade scalpel. A 6 Uzbek Ljy-L-uclcucok ca theter was introduced into the peritoneal cavity and fluid was collected. The patient tolerated the procedure well and left the ultrasound suite in stable condition. CONCLUSION: Uncomplicated ultrasound guided paracentesis. Sly Damon MD FACR on August 25, 2016 at 11:30 Board Certified Radiologist. This report was verified electronically.
[2016-08-25 11:40] VITALS: BP 111/78; PULSE 78; RESP 18; O2SAT 98
[2016-08-25 12:00] VITALS: BP 109/78; PULSE 82; RESP 18; O2SAT 99
[2016-09-04] MEDS ORDERED: IBUP-988 PO (10:09)
[2016-10-30] MEDS ORDERED: PROM25TA10 PO (16:26)
[2016-10-30] MEDS ORDERED: PEGF6P SQ (16:26)
[2016-10-30] MEDS ORDERED: ONDA4INJ2 IM (16:56)
[2016-11-11] MEDS ORDERED: MIRTA15 PO (11:24)
[2016-11-11] MEDS ORDERED: IBUP800T23 PO (12:46)
== END 2016-08-25 12:30 | disposition home or self-care (01) ==
LOC: HROP 09:39 → HRIP 09:43 → HROP 12:30
PROVIDERS: ATTEND Family Medicine
DX: R18.8 Other ascites (principal); I10 Essential (primary) hypertension; J44.9 Chronic obstructive pulmonary disease, unspecified; J45.909 Unspecified asthma, uncomplicated; E11.9 Type 2 diabetes mellitus without complications; K21.9 Gastro-esophageal reflux disease without esophagitis; Z85.41 Personal history of malignant neoplasm of cervix uteri; F20.9 Schizophrenia, unspecified
CPT/HCPCS: 36415; 49083; 85025; 85610; 85730; 96365; C1729; P9047

== ENCOUNTER 2016-08-27 10:37 | Day surgery (SDC) | payer OTHER ==
[2016-08-27] VITALS (8 sets, daily range): BP systolic 76–88; BP diastolic 50–64; PULSE 84–91; RESP 16–20; TEMP 98; O2SAT 94–99
[~2016-08-27] VITALS: Ht 160 cm; Wt 60.5 kg
[2016-08-27] MEDS ORDERED: SODIUM CHLOR 0.9% 1000 ML INJ 1,000 ML IV SCH (11:15)
[2016-08-27] MEDS ORDERED: MIDAZOLAM HCL 5 MG/5 ML VIAL ONE (12:48)
[2016-08-27] MEDS ORDERED: fentaNYL CITRATE 250 MCG/5 ML AMP ONE (12:48)
[2016-08-27] MEDS ORDERED: BUPIVACAINE HCL PF 0.75% 10 ML VIAL ONE (13:37)
--- NOTE | 2016-08-27 15:58 | RADRPT ---
EXAM DATE/TIME: 08/27/2016 13:21 [facility] COMPARISON: No previous studies available for comparison. INDICATIONS : Acites SEDATION TIME: 45 minutes MEDICATION(S): 1.) 2 mg midazolam (Versed) IV 2.) 100 mcg fentanyl (Sublimaze) IV DEVICE(S): 1.) 6 Fr Ndgc-C-btppaxjr FLUID: Total volume of 400 cc of sanders fluid was removed. Fluid was discarded. MEDICAL HISTORY : Cardiovascular disease. Chronic obstructive pulmonary disease. Diabetes mellitus type 2. SURGICAL HISTORY : None. ENCOUNTER: Initial ACUITY: 1 day PAIN SCORE: 0/10 LOCATION: Right pelvis PROCEDURE: 1.) Conscious sedation with continuous EKG and oximetry monitoring. PROCEDURE : 1. CT-guidance for abdominal paracentesis. 2. Paracentesis. The risks, benefits and alternatives to CT-guided paracentesis were explained to the patient in detai l, lay terms including the risk of bleeding and infection. Oral and written informed consent was obt ained. Using automated exposure control and adjustment of the mA and/or kV according to patient size, radiation dose was kept as low as reasonably achievable to obtain optimal diagnostic quality images. Prior to biopsy paracentesis was performed to obtain appropriate window for biopsy. Post procedure scanning reveals no evidence of hematoma or other complication. The patient tolerated the procedure well and left the CT suite in good condition. CONCLUSION: Uncomplicated CT Guided paracentesis. Sly Damon MD FACR on August 27, 2016 at 15:56 Board Certified Radiologist. This report was verified electronically.
--- NOTE | 2016-08-27 15:59 | RADRPT ---
EXAM DATE/TIME: 08/27/2016 13:21 [facility] COMPARISON: No previous studies available for comparison. INDICATIONS : Plevic mass SEDATION TIME: 45 minutes BIOPSY SITE: Right Pelvic MEDICATION(S): 1.) 2 mg midazolam (Versed) IV 2.) 100 mcg fentanyl (Sublimaze) IV DEVICE(S): 1.) 20 gauge Temno core biopsy needle MEDICAL HISTORY : Cardiovascular disease. Chronic obstructive pulmonary disease. Diabetes mellitus type 2. SURGICAL HISTORY : None. ENCOUNTER: Initial ACUITY: 1 day PAIN SCORE: 0/10 LOCATION: Pelvis A total of two core specimen(s) were obtained and sent to the laboratory for pathologic evaluation. PROCEDURE: 1. CT guided pelvicright biopsy. 2. Conscious sedation with continuous EKG and oximetry monitoring. Prior to the procedure informed consent was obtained. Any appropriate prior imaging studies were rev iewed. Using automated exposure control and adjustment of the mA and/or kV according to patient size, radiat ion dose was kept as low as reasonably achievable to obtain optimal diagnostic quality images. The site was prepped in a sterile fashion. Full sterile technique was used, including cap, mask, evita rile gloves and gown and a large sterile sheet. Hand hygiene and 2% chlorhexidine and/or betadine/al cohol prep was utilized per protocol for cutaneous antisepsis. The skin and subcutaneous tissues wer e infiltrated with local anesthetic solution. After paracentesis 18 gauge blunt needle was placed down to the pelvic mass and 2 cores obtained. Follow-up CT scan reveals no hemorrhage. The patient tolerated the procedure well and there were no complications. The patient was returned to the Radiology Outpatient Unit in stable condition. CONCLUSION: Uncomplicated CT guided biopsy. Sly Damon MD FACR on August 27, 2016 at 15:57 Board Certified Radiologist. This report was verified electronically.
[2016-08-27] MEDS ORDERED: LIDOCAINE 1%/EPINEPHrine 1:100,000 SOLN 20 ML VIAL OTHER ONE (16:45)
[2016-09-04] MEDS ORDERED: IBUP-988 PO (10:09)
[2016-10-30] MEDS ORDERED: PEGF6P SQ (16:26)
[2016-10-30] MEDS ORDERED: PROM25TA10 PO (16:26)
[2016-10-30] MEDS ORDERED: ONDA4INJ2 IM (16:56)
[2016-11-11] MEDS ORDERED: MIRTA15 PO (11:24)
[2016-11-11] MEDS ORDERED: IBUP800T23 PO (12:46)
== END 2016-08-27 16:40 | disposition home or self-care (01) ==
LOC: HRAD 10:37 → HRIP 10:41 → HRAD 16:40
PROVIDERS: ATTEND Family Medicine
DX: R18.8 Other ascites (principal); I25.10 Atherosclerotic heart disease of native coronary artery without angina pectoris; E11.9 Type 2 diabetes mellitus without complications; J44.9 Chronic obstructive pulmonary disease, unspecified
CPT/HCPCS: 49083; 49180; 77012; 88305; 88333; 88341; 88342; 99152; C1729; J2250; J3010; J7030; 99153

== ENCOUNTER → 2016-09-08 | Outpatient (CLI) | payer OTHER ==
[~2016-09-08] MED LIST changes: +DEXA4TAB PO; -FURO1TAB62 PO; +LIDO0.052; +MACR100C2 PO; +METO10TA PO; +MIRTA15 PO; +ONDA1TAB17 PO; +ONDA4INJ2 IM; +PEGF6P SQ; +PERC5TAB12 PO; -PERI8.6T PO; +PROM25TA10 PO; +PROM25TA5 PO; -TRAM50TA PO
[2016-09-08 11:19] LABS: APTT (PATIENT) 28.3 SEC (24.3-30.1); PROTHROMBIN TIME - PATIENT 11.6 SEC (9.8-11.6)
[2016-09-08 11:38] LABS: BICARBONATE 30.4 MEQ/L (21.0-32.0); POTASSIUM 4.2 MEQ/L (3.5-5.1)
== END ==
LOC: CLAB 10:42
PROVIDERS: ATTEND Family Medicine
DX: C56.9 Malignant neoplasm of unspecified ovary (principal); R18.8 Other ascites
CPT/HCPCS: 36415; 80048; 85610; 85730

== ENCOUNTER 2016-09-09 08:20 | Day surgery (SDC) | payer OTHER ==
[~2016-09-09] VITALS: Ht 160 cm; Wt 60.5 kg
[~2016-09-09 08:20] MED LIST changes: -DEXA4TAB PO; -LIDO0.052; -MACR100C2 PO; -METO10TA PO; -MIRTA15 PO; -ONDA1TAB17 PO; -ONDA4INJ2 IM; -PEGF6P SQ; -PERC5TAB12 PO; -PROM25TA10 PO; -PROM25TA5 PO
[2016-09-09 08:59] VITALS: BP 99/62; PULSE 91; RESP 20; TEMP 98.4; O2SAT 90
[2016-09-09] MEDS ORDERED: ONDA1TAB17 PO (09:26)
[2016-09-09] MEDS ORDERED: DEXA4TAB PO (09:26)
[2016-09-09] MEDS ORDERED: CHLORHEXIDINE GLUCONATE 2 % 1 PACK (2 CLOTHS) TOPICAL SCH (10:00)
[2016-09-09] MEDS ORDERED: ceFAZolin 2 GM PREMIX 50 ML - implanted port/tunneled catheter insertion IV SCH (10:00)
[2016-09-09] MEDS ORDERED: SODIUM CHLOR 0.9% 1000 ML INJ 1,000 ML IV SCH (10:00)
[2016-09-09] MEDS ORDERED: VANCOMYCIN 1000 MG/NS 250 ML - implanted port/tunneled catheter IV SCH ×2 (10:00)
[2016-09-09] MEDS ORDERED: POVIDONE IODINE 5% (ANTISEPSIS KIT) 4 APPLICATIONS EACH NARE SCH (10:00)
[2016-09-09] MEDS ORDERED: fentaNYL CITRATE 250 MCG/5 ML AMP ONE (11:21)
[2016-09-09] MEDS ORDERED: MIDAZOLAM HCL 5 MG/5 ML VIAL ONE (11:21)
[2016-09-09] MEDS ORDERED: LIDOCAINE 1%/EPINEPHrine 1:100,000 SOLN 20 ML VIAL ONE (11:27)
[2016-09-09 12:36] VITALS: BP 107/70; PULSE 90; RESP 18; TEMP 98.2; O2SAT 92
--- NOTE | 2016-09-09 12:38 | PD.RAD ---
Post Procedure Progress Note Pre Procedure Diagnosis: (1) Ovarian cancer Post Procedure Diagnosis: (1) Ovarian cancer Procedure Date: Sep 09, 2016 Supervising Radiologist: Rufino Dyer Proceduralist/Assist: Torsten Kim RT(R), RT Jean Pierre(R) Anesthesia: Local, Analgesia, Conscious Sedation Plan of Activity Patient to Unit: ROPU Patient Condition: Good See PACS Report for procedural detail/treatment Central Venous Access Device Procedure 1 Right Internal Jugular Infusaport Placement single lumen Lao: 8 Rufino Dyer MD Sep 09, 2016 12:38
[2016-09-09] MEDS ORDERED: SODIUM CHLORIDE 0.9% FLUSH 10 ML FLUSH IVF PRN (12:45)
[2016-09-09 12:51] VITALS: BP 109/73; PULSE 89; RESP 18; O2SAT 91
--- NOTE | 2016-09-09 12:53 | RADRPT ---
EXAM DATE/TIME: 09/09/2016 11:32 [facility] COMPARISON: No previous studies available for comparison. INDICATIONS : Pelvic mass. MEDICAL HISTORY : 1. Asthma 2. DM 3. HTN 4. COPD 5.Bi polar 6. Smoker 7. Ascites 8. Arthritis SURGICAL HISTORY : 1/ Paracentesis 2. Bx ENCOUNTER: Initial ACUITY: 2 months PAIN SCORE: 0/10 FLUORO TIME: 1.3 minutes IMAGE SERIES: 2 SEDATION TIME: 40 minutes ACCESS: Right internal jugular vein SEDATION: 1.) 3 mg midazolam (Versed) IV 2.) 150 mcg fentanyl (Sublimaze) IV Prophylactic antibiotics were administered with appropriate pre-procedure timing. Vancomycin within 2 hours of procedure, Ancef (or alternative) within 1 hour of procedure. DEVICE: 1. 8 Lao single lumen Bard Power Port PROCEDURE : 1. Continuous pulse oximetry and EKG monitoring. 2. Intravenous conscious sedation. 3. Ultrasound guidance for venous access. 4. Fluoroscopic guided implantable central venous port placement. The patient was placed supine. The neck was prepped in sterile fashion. Full sterile technique was u sed, including cap, mask, sterile gloves and gown, and a large sterile sheet. Hand hygiene and 2% ch lorhexidine Betadine was utilized per protocol for cutaneous antisepsis with appropriate dry time for site. The skin and subcutaneous tissues were infiltrated with local anesthetic solution. Under direct ultrasound guidance, central venous access was accomplished in the targeted vessel. The ultrasound images depicting access guidance were stored and saved to PACS for permanent record. A s ubcutaneous pocket was created using blunt dissection. The port was introduced to the pocket. The c atheter tubing was fed through a subcutaneous tunnel to the venotomy site. The catheter tubing was c ut to a suitable length and then was introduced through a valved Peel-Away sheath and positioned with catheter tubing tip at the cavo-atrial junction level. The pocket incision was closed with subcutic ular Vicryl suture. Steri-Strips were applied. The port was flushed and locked with heparin solutio n per protocol. Sterile dressing was applied to the site. The patient tolerated the procedure well. Conscious sedation was performed with the prescribed dosages and duration as above in the presence of an independent trained radiology nurse to assist in the monitoring of the patient. EKG and oximetry remained stable throughout the procedure. The patient tolerated the procedure well and there were no complications. The patient was sent to post anesthesia recovery in stable condition. CONCLUSION: Uncomplicated ultrasound and fluoroscopic guided implanted central venous port catheter placement as described in detail above. An 8 Lao Power port was placed. Rufino Dyer MD on September 09, 2016 at 12:51 Board Certified Radiologist. This report was verified electronically.
[2016-09-09 13:21] VITALS: BP 116/74; PULSE 82; RESP 19; O2SAT 92
[2016-09-09 13:51] VITALS: BP 97/67; PULSE 83; RESP 18; O2SAT 91
[2016-10-30] MEDS ORDERED: PROM25TA10 PO (16:26)
[2016-10-30] MEDS ORDERED: PEGF6P SQ (16:26)
[2016-10-30] MEDS ORDERED: ONDA4INJ2 IM (16:56)
[2016-11-11] MEDS ORDERED: MIRTA15 PO (11:24)
[2016-11-11] MEDS ORDERED: IBUP800T23 PO (12:46)
== END 2016-09-09 14:40 | disposition home or self-care (01) ==
LOC: HROP 08:20 → HRIP 08:25 → HROP 14:40
PROVIDERS: ATTEND Obstetrics & Gynecology Gynecologic Oncology
DX: Z45.2 Encounter for adjustment and management of vascular access device (principal); C56.9 Malignant neoplasm of unspecified ovary; R18.8 Other ascites; I10 Essential (primary) hypertension; J44.9 Chronic obstructive pulmonary disease, unspecified; E11.9 Type 2 diabetes mellitus without complications; J45.909 Unspecified asthma, uncomplicated
CPT/HCPCS: 36561; 76937; 77001; 99152; 99153; C1788; J0690; J1642; J2250; J3010; J3370; J7030; J7050

== ENCOUNTER 2016-09-11 08:01 | Day surgery (SDC) | payer OTHER ==
[~2016-09-11 08:01] MED LIST changes: +DEXA4TAB PO; +ONDA1TAB17 PO
[2016-09-11 10:00] VITALS: BP 103/69; PULSE 80; RESP 20; TEMP 98; O2SAT 100; O2SAT 98
[2016-09-11 10:15] VITALS: BP 93/73; PULSE 83; RESP 20; O2SAT 100
[2016-09-11] MEDS ORDERED: ALBUMIN HUMAN 25% 12.5GM-W/25GM FOR 37.5GM IV ONE (10:15)
[2016-09-11] MEDS ORDERED: ALBUMIN HUMAN 25% 25GM-W/12.5GM FOR 37.5GM IV ONE (10:15)
--- NOTE | 2016-09-11 11:31 | RADRPT ---
EXAM DATE/TIME: 09/11/2016 08:21 [facility] COMPARISON: EXTERNAL COMPARISON: US GUIDED ABD PARACENTESIS, August 25, 2016, 9:52. [facility], PET/CT - TUMOR METABOLISM, Aug 01 2016. INDICATIONS : Ascites. MEDICAL HISTORY : Chronic obstructive pulmonary disease. Hypertension. Arthritis. Ovarian cancer. GERD. Schizophrenia. Bipolar. Depression. Anxiety. Substanuce use. Anticoagulant therapy. Cerival cancer. Seizures. Head t rauma as child. Migraines. Chest pain. Asthma. Dyspnea. Diabetes. SURGICAL HISTORY : Tubal ligation. Paracentesis. Port placement. ENCOUNTER: Sequela ACUITY: 2 weeks PAIN SCORE: 06/03 LOCATION: Right lower quadrant FLUID: Total volume of 6,400 cc of cloudy, red fluid was removed. Fluid was discarded. Paracentesis was therapeutic only. Post procedure scanning reveals no hematoma or other complication. TECHNIQUE: 1. Ultrasound guidance for abdominal paracentesis. 2. Paracentesis. The risks, benefits, and alternatives to ultrasound guided paracentesis were explained to the patient in detail including the risk of bleeding and infection. Written and verbal informed consent was obt ained. With the patient on the ultrasound table, ultrasound imaging was used to select the most appropriate approach for paracentesis. Overlying skin was prepped and draped in the usual sterile fashion and wi th a local anesthetic, a dermatotomy was made with an 11 blade scalpel. A 6 Tamazight Pyy-U-hkmlcyzf ca theter was introduced into the peritoneal cavity and fluid was collected. The patient tolerated the procedure well and left the ultrasound suite in stable condition. CONCLUSION: Uncomplicated ultrasound guided paracentesis. Han Ozuna MD on September 11, 2016 at 11:29 Board Certified Radiologist. This report was verified electronically.
[2016-10-30] MEDS ORDERED: PEGF6P SQ (16:26)
[2016-10-30] MEDS ORDERED: PROM25TA10 PO (16:26)
[2016-10-30] MEDS ORDERED: ONDA4INJ2 IM (16:56)
[2016-11-11] MEDS ORDERED: MIRTA15 PO (11:24)
[2016-11-11] MEDS ORDERED: IBUP800T23 PO (12:46)
== END 2016-09-11 11:25 | disposition home or self-care (01) ==
LOC: HRIP 08:01 → HRAD 08:01
PROVIDERS: ATTEND Family Medicine
DX: R18.8 Other ascites (principal); E11.9 Type 2 diabetes mellitus without complications; I10 Essential (primary) hypertension; J44.9 Chronic obstructive pulmonary disease, unspecified; K21.9 Gastro-esophageal reflux disease without esophagitis; Z85.9 Personal history of malignant neoplasm, unspecified; Z79.01 Long term (current) use of anticoagulants
CPT/HCPCS: 49083; 96365; C1729; P9047

== ENCOUNTER 2016-09-19 21:23 | Emergency (ER) | payer OTHER ==
[~2016-09-19] VITALS: Ht 160 cm; Wt 60.0 kg
[2016-09-19 21:40] VITALS: BP 126/83; PULSE 93; RESP 18; TEMP 99.2; O2SAT 97
[2016-09-19] MEDS ORDERED: ONDANSETRON HCL 4 MG/2 ML VIAL IV PUSH ONE (21:45)
[2016-09-19] MEDS ORDERED: SODIUM CHLOR 0.9% 1000 ML INJ 1,000 ML IV ONE (21:45)
[2016-09-19] MEDS ORDERED: MORPHINE SULFATE 4 MG/ML INJ IV PUSH ONE (22:30)
[2016-09-19 22:50] LABS: AUTOMATED NEUTROPHIL # 4.6 TH/MM3 (1.8-7.7); BASOPHIL # 0.1 TH/MM3 (0-0.2); BASOPHIL % 0.8 % (0.0-2.0); EOSINOPHIL # 0.2 TH/MM3 (0-0.4); EOSINOPHIL % 2.3 % (0.0-4.0); HEMATOCRIT 34.4 % (35.0-46.0); HEMO FLAGS DIFF FINAL; LYMPH % 31.9 % (9.0-44.0); LYMPHOCYTE # 2.4 TH/MM3 (1.0-4.8); MEAN CELL VOLUME 85.3 FL (80.0-100.0); MEAN CORPUSCULAR HEMOGLOBIN 28.4 PG (27.0-34.0); MEAN CORPUSCULAR HGB CONC 33.3 % (32.0-36.0); MONO % 2.4 % (0.0-8.0); NEUT % 62.6 % (16.0-70.0); PLATELET COUNT 412 TH/MM3 (150-450); RED BLOOD COUNT 4.03 MIL/MM3 (4.00-5.30); RED CELL DISTRIBUTION WIDTH 15.7 % (11.6-17.2); WHITE BLOOD COUNT 7.4 TH/MM3 (4.0-11.0)
--- NOTE | 2016-09-19 22:58 | PD ---
HPI Chief Complaint: General Weakness Time Seen by Provider: 22:15 Travel History International Travel<30 days: No Contact w/Intl Traveler<30days: No Traveled to known affect area: No History of Present Illness HPI 51 y/o female presents with nonbloody vomiting and diarrhea that has been present over the past couple of days after receiving chemotherapy on Thursday for the first time. She states she also has been having intermittent back and abdominal pain over the past couple of months since being diagnosed with ovarian cancer. She states that she also has cirrhosis and intermittently gets fluid drained from her abdomen. She states that she last had her abdomen drained about 2 weeks or so ago. She states Dr. mckeon is her cancer specialist. Quality is nonbloody. Severity is multiple episodes. Patient denies other concurrent complaints. PFSH Past Medical History Hx Anticoagulant Therapy: Yes Arthritis: Yes Asthma: Yes Bipolar Disorder: Yes Anxiety: Yes Depression: Yes Heart Rhythm Problems: No (DENIES) Cancer: Yes (CERVIX) Cardiac Catheterization: No Cardiovascular Problems: Yes High Cholesterol: No Chest Pain: Yes Congestive Heart Failure: No COPD: Yes Diabetes: Yes Patient Takes Glucophage: Yes (METFORMIN YESTERDAY) Diminished Hearing: No Gastrointestinal Disorders: Yes GERD: Yes Headaches: Yes Heparin Induced Thrombocytopen: No Hypertension: Yes Implanted Vascular Access Dvce: No Respiratory: Yes Immunizations Current: Yes Migraines: Yes Schizophrenia: Yes Seizures: Yes Tetanus Vaccination: > 5 Years ?: Not Menopausal: Yes : 4 Para: 3 Miscarriage: 1 Tubal Ligation: Yes Past Surgical History Coronary Artery Bypass Graft: No Gynecologic Surgery: Yes (tubal ligation ) Hysterectomy: Yes (TUBAL) Neurologic Surgery: No Other Surgery: Yes (PARACENTESIS) Social History Alcohol Use: No (hx of etoh abuse, quit 2012) Tobacco Use: Yes (3 OR 4) Substance Use: No (hx of crack last used last month -2016) Allergies-Medications (Allergen,Severity, Reaction): Coded Allergies: No Known Allergies (Verified , 09/19/16) Reported Meds & Prescriptions Reported Meds & Active Scripts Active Phenergan (Promethazine HCl) 25 Mg Tab 25 Mg PO Q6H PRN Macrobid (Nitrofurantoin Monoh/Nitrofur Macro) 100 Mg Cap 100 Mg PO BID 7 Days Lisinopril 10 Mg Tab 10 Mg PO DAILY Metformin (Metformin HCl) 500 Mg Tab 500 Mg PO BIDPC With meals Reported Ondansetron (Ondansetron HCl) 8 Mg Tab 8 Mg PO TID Dexamethasone 4 Mg Tab 4 Mg PO DIRECTED Ibuprofen 800 Mg Tab 800 Mg PO TID Buspirone (Buspirone HCl) 15 Mg Tab 15 Mg PO TID Benztropine (Benztropine Mesylate) 2 Mg Tab 2 Mg PO BID Zyprexa (Olanzapine) 10 Mg Tab 10 Mg PO BID Quetiapine (Quetiapine Fumarate) 300 Mg Tab 300 Mg PO HS Review of Systems Except as stated in HPI: all other systems reviewed are Neg Physical Exam Exam Limitations: Other: (nausea) Narrative GENERAL: Well-nourished, well-developed patient. SKIN: Warm and dry. HEAD: Normocephalic and atraumatic. EYES: No injection or drainage. ENT: No nasal drainage noted. NECK: Supple, trachea midline. CARDIOVASCULAR: Regular rate and rhythm RESPIRATORY: No increased effort. No accessory muscle use. GASTROINTESTINAL: Abdomen soft, mild distention with mild tenderness diffusely with deep palpation NEUROLOGICAL: Awake and alert. Moves all extremities. Normal speech. Data Data Last Documented VS Vital Signs Date Time Temp Pulse Resp B/P Pulse Ox O2 Delivery O2 Flow Rate FiO2 09/19/16 21:40 99.2 93 18 126/83 97 Room Air Orders Magnesium (Mg) (09/19/16 21:44) Phosphorus (Po4) (09/19/16 21:44) Complete Blood Count With Diff (09/19/16 21:44) Comprehensive Metabolic Panel (09/19/16 21:44) Iv Access Insert/Monitor (09/19/16 21:44) Ecg Monitoring (09/19/16 21:44) Oximetry (09/19/16 21:44) Sodium Chlor 0.9% 1000 Ml Inj (Ns 1000 M (09/19/16 21:45) Ondansetron Inj (Zofran Inj) (09/19/16 21:45) Urinalysis - C+S If Indicated (09/19/16 22:21) Morphine Inj (Morphine Inj) (09/19/16 22:30) Urine Culture (09/19/16 23:18) Ceftriaxone Inj (Rocephin Inj) (09/20/16 00:15) Labs Laboratory Tests Test 09/19/16 09/19/16 22:28 23:18 White Blood Count 7.4 TH/MM3 Red Blood Count 4.03 MIL/MM3 Hemoglobin 11.5 GM/DL Hematocrit 34.4 % Mean Corpuscular Volume 85.3 FL Mean Corpuscular Hemoglobin 28.4 PG Mean Corpuscular Hemoglobin 33.3 % Concent Red Cell Distribution Width 15.7 % Platelet Count 412 TH/MM3 Mean Platelet Volume 7.3 FL Neutrophils (%) (Auto) 62.6 % Lymphocytes (%) (Auto) 31.9 % Monocytes (%) (Auto) 2.4 % Eosinophils (%) (Auto) 2.3 % Basophils (%) (Auto) 0.8 % Neutrophils # (Auto) 4.6 TH/MM3 Lymphocytes # (Auto) 2.4 TH/MM3 Monocytes # (Auto) 0.2 TH/MM3 Eosinophils # (Auto) 0.2 TH/MM3 Basophils # (Auto) 0.1 TH/MM3 CBC Comment DIFF FINAL Differential Comment Sodium Level 139 MEQ/L Potassium Level 3.8 MEQ/L Chloride Level 104 MEQ/L Carbon Dioxide Level 26.8 MEQ/L Anion Gap 8 MEQ/L Blood Urea Nitrogen 12 MG/DL Creatinine 0.50 MG/DL Estimat Glomerular Filtration 157 ML/MIN Rate Random Glucose 93 MG/DL Calcium Level 9.1 MG/DL Phosphorus Level 4.2 MG/DL Magnesium Level 2.0 MG/DL Total Bilirubin 0.5 MG/DL Aspartate Amino Transf 33 U/L (AST/SGOT) Alanine Aminotransferase 19 U/L (ALT/SGPT) Alkaline Phosphatase 68 U/L Total Protein 7.3 GM/DL Albumin 2.2 GM/DL Urine Color YELLOW Urine Turbidity CLEAR Urine pH 6.0 Urine Specific [place] 1.021 Urine Protein TRACE mg/dL Urine Glucose (UA) NEG mg/dL Urine Ketones NEG mg/dL Urine Occult Blood NEG Urine Nitrite NEG Urine Bilirubin NEG Urine Urobilinogen LESS THAN 2.0 MG/DL Urine Leukocyte Esterase MOD Urine RBC 1 /hpf Urine WBC 12 /hpf Urine Squamous Epithelial 2 /hpf Cells Urine Bacteria MOD /hpf Urine Mucus FEW /lpf Microscopic Urinalysis Comment CULTURE INDICATED MDM Medical Decision Making Medical Screen Exam Complete: Yes Emergency Medical Condition: Yes Medical Record Reviewed: Yes (past history confirmed) Interpretation(s) CBC & BMP Diagram 09/19/16 22:28 ua with uti Differential Diagnosis Chemotherapy affect, gastroenteritis, pancreatitis, renal failure.... Narrative Course Will check blood work, urinalysis and dose with IV fluids, Zofran, morphine and reevaluate ed workup with uti, no emesis here, labs and vitals stable, will discuss with dr cmkeon Patient denies any new complaints and states that they are feeling better. Patient happy with care, all questions answered. Patient knows that follow up is incumbent on them and to return to the emergency room immediately if new or worsening symptoms develop. Patient given strict return precautions, vitals reviewed and are normal, agrees to further workup as an outpatient. Physician Communication Physician Communication dr mckeon states ok to dc with normal counts and no further emesis, can follow in office thursday Diagnosis Primary Impression: UTI (urinary tract infection) Qualified Code: N39.0 - Urinary tract infection without hematuria, site unspecified Additional Impressions: Vomiting and diarrhea Abdominal pain Qualified Code: R10.30 - Lower abdominal pain Referrals: Annie Mckeon MD call for appointment thursday Patient Instructions: General Instructions Additional Instructions: return as needed-vomiting, fever, worsening pain, keep hydrated, phenergan as needed, tylenol as needed for pain Med/Other Pt SpecificInfo: Prescription(s) given Scripts Promethazine (Phenergan)25 Mg Tab25 Mg PO Q6H PRN (NAUSEA OR VOMITING) #15 TAB Prov:Diane Huber MD 09/20/16 Nitrofurantoin Monohydrate Macrocrystals (Macrobid)100 Mg [id number] Mg PO BID 7 Days Prov:Diane Huber MD 09/20/16 Disposition: 01 DISCHARGE HOME Condition: Stable Diane Huber MD Sep 19, 2016 22:58
[2016-09-19 23:19] LABS: ANION GAP 8 MEQ/L (5-15); AST (GOT) 33 U/L (15-37); BICARBONATE 26.8 MEQ/L (21.0-32.0); BLOOD UREA NITROGEN 12 MG/DL (7-18); CHLORIDE 104 MEQ/L (98-107); GLOMERULAR FILTRATION RATE 157 ML/MIN (>89); POTASSIUM 3.8 MEQ/L (3.5-5.1); SODIUM (NA) 139 MEQ/L (136-145)
[2016-09-19 23:21] LABS: ALKALINE PHOSPHATASE 68 U/L (45-117); ALT (GPT) 19 U/L (10-53); TOTAL BILIRUBIN ADULT 0.5 MG/DL (0.2-1.0)
[2016-09-19 23:42] LABS: BACTERIA, URINE MOD /hpf; BLOOD, URINE NEG (NEG); COMMENT (UR) CULTURE INDICATED; CULTURE IF INDICATED CULTURE INDICATED; GLUCOSE,URINE NEG (NEG); KETONE, URINE NEG (NEG); MUCUS URINE FEW /lpf (OCC); NITRITE,URINE NEG (NEG); SQUAMOUS EPITHELIAL CELL URINE 2 /hpf (0-5); URINE COLOR YELLOW (YELLW/STRAW)
[2016-09-20] VITALS: BP 123/94; PULSE 69; RESP 18; O2SAT 97
[2016-09-20] MEDS ORDERED: cefTRIAXone INJ 1,000 MG in SODIUM CHLORIDE 0.9% INJ 100 ML IV ONE (00:15)
[2016-09-20] MEDS ORDERED: MACR100C2 PO (00:29)
[2016-09-20] MEDS ORDERED: PROM25TA5 PO (00:30)
[2016-10-30] MEDS ORDERED: PEGF6P SQ (16:26)
[2016-10-30] MEDS ORDERED: PROM25TA10 PO (16:26)
[2016-10-30] MEDS ORDERED: ONDA4INJ2 IM (16:56)
[2016-11-11] MEDS ORDERED: MIRTA15 PO (11:24)
[2016-11-11] MEDS ORDERED: IBUP800T23 PO (12:46)
== END 2016-09-20 02:21 | disposition home or self-care (01) ==
LOC: NEPE 21:23
DX: N39.0 Urinary tract infection, site not specified (principal); R11.10 Vomiting, unspecified; R19.7 Diarrhea, unspecified; R10.30 Lower abdominal pain, unspecified; K74.60 Unspecified cirrhosis of liver; E11.9 Type 2 diabetes mellitus without complications; I10 Essential (primary) hypertension; C56.9 Malignant neoplasm of unspecified ovary; Z72.0 Tobacco use; Z79.01 Long term (current) use of anticoagulants; Z79.84 Long term (current) use of oral hypoglycemic drugs; Z87.39 Personal history of other diseases of the musculoskeletal system and connective tissue; Z87.09 Personal history of other diseases of the respiratory system; Z86.59 Personal history of other mental and behavioral disorders; Z86.79 Personal history of other diseases of the circulatory system; Z87.19 Personal history of other diseases of the digestive system; Z86.69 Personal history of other diseases of the nervous system and sense organs
CPT/HCPCS: 80053; 81001; 83735; 84100; 85025; 87086; 96374; 96375; 99284; J0696; J2270; J2405; J7030

== ENCOUNTER 2016-09-25 09:37 | Day surgery (SDC) | payer OTHER ==
[~2016-09-25 09:37] MED LIST changes: -LIDO0.052; -METO10TA PO; -MIRTA15 PO; -ONDA4INJ2 IM; -PEGF6P SQ; -PERC5TAB12 PO; -PROM25TA10 PO
[2016-09-25] MEDS ORDERED: LIDO0.052 (11:01)
[2016-09-25] MEDS ORDERED: METO10TA PO (11:01)
[2016-09-25 12:13] VITALS: BP 110/70; PULSE 103; RESP 14; TEMP 98.8; O2SAT 100
[2016-09-25 14:05] VITALS: BP 134/75; PULSE 91; RESP 20; TEMP 98.2; O2SAT 99
[2016-09-25] MEDS ORDERED: ALBUMIN HUMAN 25% 50 GM IV ONE (14:15)
[2016-09-25 14:18] VITALS: BP 128/72; PULSE 89; RESP 18; O2SAT 99
--- NOTE | 2016-09-26 07:37 | RADRPT ---
EXAM DATE/TIME: 09/25/2016 12:08 [facility] COMPARISON: EXTERNAL COMPARISON: US GUIDED ABD PARACENTESIS, September 11, 2016, 8:21. [facility], PET/CT - TUMOR METABOLISM, Aug 01 2016 INDICATIONS : Ascites. MEDICAL HISTORY : Chronic obstructive pulmonary disease. Hypertension. Arthritis. Diabetese. Dyspnea. Asthma. Chest jamal n. Seizures. Head trauma as a child. Cervical cancer. Ovarian cancer. Anticoagulant therapy. Substanc e use. GERD. Schizophrenia. Bipolar. Depression. Anxiety. SURGICAL HISTORY : Tubal ligation. Paracentesis. Port placement ENCOUNTER: Sequela ACUITY: 2 weeks PAIN SCORE: 0/10 LOCATION: Right lower quadrant FLUID: Total volume of 8100 cc of clear, yellow fluid was removed. Fluid was discarded. Paracentesis was therapeutic only. Post procedure scanning reveals no hematoma or other complication. TECHNIQUE: 1. Ultrasound guidance for abdominal paracentesis. 2. Paracentesis. The risks, benefits, and alternatives to ultrasound guided paracentesis were explained to the patient in detail including the risk of bleeding and infection. Written and verbal informed consent was obt ained. With the patient on the ultrasound table, ultrasound imaging was used to select the most appropriate approach for paracentesis. Overlying skin was prepped and draped in the usual sterile fashion and wi th a local anesthetic, a dermatotomy was made with an 11 blade scalpel. A 6 Upper Sorbian Tag-F-kpwmegve ca theter was introduced into the peritoneal cavity and fluid was collected. The patient tolerated the procedure well and left the ultrasound suite in stable condition. CONCLUSION: Uncomplicated ultrasound guided paracentesis. Martin Mckenzie MD on September 26, 2016 at 7:34 Board Certified Radiologist. This report was verified electronically.
[2016-10-30] MEDS ORDERED: PEGF6P SQ (16:26)
[2016-10-30] MEDS ORDERED: PROM25TA10 PO (16:26)
[2016-10-30] MEDS ORDERED: ONDA4INJ2 IM (16:56)
[2016-11-11] MEDS ORDERED: MIRTA15 PO (11:24)
[2016-11-11] MEDS ORDERED: IBUP800T23 PO (12:46)
== END 2016-09-25 15:10 | disposition home or self-care (01) ==
LOC: HRAD 09:37 → HRIP 11:48 → HRAD 15:10
PROVIDERS: ATTEND Family Medicine
DX: R18.8 Other ascites (principal); J44.9 Chronic obstructive pulmonary disease, unspecified; I10 Essential (primary) hypertension; E11.9 Type 2 diabetes mellitus without complications; R56.9 Unspecified convulsions; K21.9 Gastro-esophageal reflux disease without esophagitis; F41.9 Anxiety disorder, unspecified; Z85.43 Personal history of malignant neoplasm of ovary
CPT/HCPCS: 49083; 96365; C1729; P9047

== ENCOUNTER → 2016-09-25 | Outpatient (CLI) | payer OTHER ==
[~2016-09-25] MED LIST changes: +LIDO0.052; +MACR100C2 PO; +METO10TA PO; +MIRTA15 PO; +ONDA4INJ2 IM; +PEGF6P SQ; +PERC5TAB12 PO; +PROM25TA10 PO; +PROM25TA5 PO
[2016-09-25 10:29] LABS: APTT (PATIENT) 24.7 SEC (24.3-30.1); PROTHROMBIN TIME - PATIENT 10.8 SEC (9.8-11.6)
[2016-09-25 11:25] LABS: BICARBONATE 28.3 MEQ/L (21.0-32.0)
== END ==
LOC: CLAB 09:32
PROVIDERS: ATTEND Family Medicine
DX: R18.8 Other ascites (principal); C56.9 Malignant neoplasm of unspecified ovary; C76.2 Malignant neoplasm of abdomen
CPT/HCPCS: 36415; 80048; 85610; 85730

== ENCOUNTER 2016-10-01 13:10 | Day surgery (SDC) | payer OTHER ==
[~2016-10-01] VITALS: Ht 162.6 cm; Wt 55.0 kg
[~2016-10-01 13:10] MED LIST changes: +LIDO0.052; +METO10TA PO
[2016-10-01 13:40] VITALS: BP 104/68; PULSE 89; RESP 20; TEMP 99; O2SAT 99
[2016-10-01] MEDS ORDERED: IOHEXOL 350 MG/ML 50 ML BTL (for RAD DIAG) IV ONE (14:59)
[2016-10-01] MEDS ORDERED: SODIUM CHLORIDE 0.9% FLUSH 10 ML FLUSH IV FLUSH PRN (16:15)
--- NOTE | 2016-10-01 16:37 | PD.RAD ---
Post Procedure Progress Note Pre Procedure Diagnosis: (1) Ovarian cancer (2) Non functioning port Post Procedure Diagnosis: (1) Ovarian cancer (2) Non functioning port Procedure Date: October 01, 2016 Supervising Radiologist: Christiano Bello Proceduralist/Assist: Coby Rodas, RT(R)(), Gay Gruber, RT(R)() Plan of Activity Patient to Unit: ROPU Patient Condition: Good See PACS Report for procedural detail/treatment Central Venous Access Device Procedure 1 Right Infusaport Evaluation single lumen Findings: Unable to aspirate blood. End of port tubing encased with fibrin sheath.Port otherwise patent. Additional Detail: Port treated with 2 mg cathflo. After one hour Cathflo was removed and blood could be aspirated easily. Christiano Bello MD October 01, 2016 16:37
--- NOTE | 2016-10-01 16:51 | RADRPT ---
EXAM DATE/TIME: 10/01/2016 15:24 [facility] COMPARISON: No previous studies available for comparison. INDICATIONS : Patient is in need of an evaluation of exisitng port due to non functionality. MEDICAL HISTORY : History of ovarian cancer, HTN, ascites, multiple mental disorders. SURGICAL HISTORY : History of port placement, peritoneal biopsy, tubal ligation. ENCOUNTER: Subsequent ACUITY: 1 week PAIN SCORE: 0/10 FLUORO TIME: 0.5 minutes IMAGE SERIES: 2 8 cc Omnipaque (iohexol) 350 ACCESS: Right internal jugular vein MEDICATION(S): 1.) 2.5 mg TPA IV PROCEDURE : 1. Access of Ssooet-i-jers. 2. Port patency injection. The risks, benefits and alternatives to the procedure were explained and verbal and written consent w as obtained. The patient was placed supine. The port was prepped in sterile fashion. Full sterile t echnique was used, including cap, mask, sterile gloves and gown, and a large sterile sheet. Hand hyg iene and 2% chlorhexidine prep was utilized per protocol for cutaneous antisepsis with appropriate dr y time for site. The previously placed port was accessed and positive contrast was injected for evaluation. Injection demonstrates poor outflow from the which is located within the right atrium. There is collection of contrast surrounding the distal port characteristic of a fibrin sheath. 2.5 mg of TPA was instilled into the port. The was reevaluated in one hour. Significant improvement i n blood aspiration from the port was noted. CONCLUSION: Extensive fibrin sheath is noted surrounding the distal tubing of the port causing poor outflow. Significant improvement in flow and aspiration following instillation of 2.5 mg of TPA as described. Christiano Bello MD on October 01, 2016 at 16:46 Board Certified Radiologist. This report was verified electronically.
[2016-10-30] MEDS ORDERED: PROM25TA10 PO (16:26)
[2016-10-30] MEDS ORDERED: PEGF6P SQ (16:26)
[2016-10-30] MEDS ORDERED: ONDA4INJ2 IM (16:56)
[2016-11-11] MEDS ORDERED: MIRTA15 PO (11:24)
[2016-11-11] MEDS ORDERED: IBUP800T23 PO (12:46)
== END 2016-10-01 16:30 | disposition home or self-care (01) ==
LOC: HROP 13:10 → HRIP 13:12 → HROP 16:30
PROVIDERS: ATTEND Obstetrics & Gynecology Gynecologic Oncology
DX: T85.698A Other mechanical complication of other specified internal prosthetic devices, implants and grafts, initial encounter (principal); C56.9 Malignant neoplasm of unspecified ovary; R18.8 Other ascites; I10 Essential (primary) hypertension
CPT/HCPCS: 36598; J1642; Q9967

== ENCOUNTER 2016-10-10 14:58 | Emergency (ER) | payer OTHER ==
[~2016-10-10] VITALS: Ht 160 cm; Wt 55.0 kg
[~2016-10-10 14:58] MED LIST changes: -MACR100C2 PO
[2016-10-10 15:00] VITALS: BP 129/74; PULSE 85; RESP 20; TEMP 98.6; O2SAT 99
--- NOTE | 2016-10-10 15:03 | PD ---
Physical Exam Date Seen by Provider: October 10, 2016 Time Seen by Provider: 15:01 Narrative 51 YOBF C/O ABD PAIN AND BACK PAIN . CHEMO THURSDAY. NO RADIATION. H/O STAGE 3 OVARIAN CA. POS F/C ,SOB MALAISE. 10 PAIN VVS WAITING FOR BED PLACEMENT Data Data Last Documented VS Vital Signs Date Time Temp Pulse Resp B/P Pulse Ox O2 Delivery O2 Flow Rate FiO2 10/10/16 15:00 98.6 85 20 129/74 99 MDM Medical Record Reviewed: Yes Supervised Visit with VISHAL: Asher Leonardo October 10, 2016 15:03
[2016-10-10] MEDS ORDERED: PERC5TAB12 PO (16:27)
--- NOTE | 2016-10-10 17:48 | PD ---
HPI Chief Complaint: Pain: Acute or Chronic Time Seen by Provider: 15:30 Travel History International Travel<30 days: No Contact w/Intl Traveler<30days: No Traveled to known affect area: No History of Present Illness HPI The patient was seen and examined in the presence of the nurse. She complains of diffuse pain in her abdomen back pelvis and both legs down to her feet. Duration 3 days. No injury. Denies fever or vomiting or diarrhea. She is getting chemotherapy for metastatic ovarian Cancer. Has chronic ascites and has had multiple paracentesis. Symptoms severity is moderate PFSH Past Medical History Hx Anticoagulant Therapy: Yes Arthritis: Yes Asthma: Yes Bipolar Disorder: Yes Anxiety: Yes Depression: Yes Heart Rhythm Problems: No (DENIES) Cancer: Yes (CERVIX) Cardiac Catheterization: No Cardiovascular Problems: Yes High Cholesterol: No Chemotherapy: Yes (THURSDAY) Chest Pain: Yes Congestive Heart Failure: No COPD: Yes Diabetes: Yes Diminished Hearing: No Gastrointestinal Disorders: Yes GERD: Yes Headaches: Yes Heparin Induced Thrombocytopen: No Hypertension: Yes Implanted Vascular Access Dvce: No Respiratory: Yes Immunizations Current: Yes Migraines: Yes Schizophrenia: Yes Seizures: Yes ?: Not Menopausal: Yes : 4 Para: 3 Miscarriage: 1 Tubal Ligation: Yes Past Surgical History Coronary Artery Bypass Graft: No Gynecologic Surgery: Yes (tubal ligation ) Hysterectomy: Yes (TUBAL) Neurologic Surgery: No Other Surgery: Yes (PARACENTESIS) Social History Alcohol Use: No Tobacco Use: No Substance Use: No Allergies-Medications (Allergen,Severity, Reaction): Coded Allergies: No Known Allergies (Verified , 10/01/16) Reported Meds & Prescriptions Reported Meds & Active Scripts Active Percocet (Oxycodone-Acetaminophen) 5-325 mg Tab 1 Tab PO Q6H PRN Phenergan (Promethazine HCl) 25 Mg Tab 25 Mg PO Q6H PRN Lisinopril 10 Mg Tab 10 Mg PO DAILY Metformin (Metformin HCl) 500 Mg Tab 500 Mg PO BIDPC With meals Reported Metoclopramide (Metoclopramide HCl) 10 Mg Tab 10 Mg PO TIDAC Lidocaine 4% Transparent Topical Dressing 4 % Kit Ondansetron (Ondansetron HCl) 8 Mg Tab 8 Mg PO TID Dexamethasone 4 Mg Tab 4 Mg PO DIRECTED Ibuprofen 800 Mg Tab 800 Mg PO TID Buspirone (Buspirone HCl) 15 Mg Tab 15 Mg PO TID Benztropine (Benztropine Mesylate) 2 Mg Tab 2 Mg PO BID Zyprexa (Olanzapine) 10 Mg Tab 10 Mg PO BID Quetiapine (Quetiapine Fumarate) 300 Mg Tab 300 Mg PO HS Review of Systems General / Constitutional: No: Fever HENT: No: Headaches Cardiovascular: No: Chest Pain or Discomfort Respiratory: No: Cough Physical Exam Narrative GASTROINTESTINAL: Abdomen soft, non-tender, prominent ascitic fluid wave. Positive bowel sounds. No rebound or No guarding. SKIN: Focused skin assessment reveals no rash or ulcers. Skin is warm and dry. Palpation shows no induration or nodules. Psych: Normal mood and affect. Normal insight and judgment. No bony tenderness or edema of the legs Data Data Last Documented VS Vital Signs Date Time Temp Pulse Resp B/P Pulse Ox O2 Delivery O2 Flow Rate FiO2 10/10/16 15:00 98.6 85 20 129/74 99 MDM Medical Decision Making Medical Screen Exam Complete: Yes Emergency Medical Condition: Yes Medical Record Reviewed: Yes Differential Diagnosis Anasarca, ascites, metastatic spread Narrative Course I have reviewed the patient's electronic medical record. 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 The patient was advised to follow up with their physician and return if they worsen. Med/Other Pt SpecificInfo: Prescription(s) given Scripts Oxycodone-Acetaminophen (Percocet)5-325 mg Tab1 Tab PO Q6H PRN (PAIN) #20 TAB Ref 0 Prov:John Fairchild MD 10/10/16 Disposition: 01 DISCHARGE HOME Condition: Stable John Fairchild MD October 10, 2016 17:48
[2016-10-30] MEDS ORDERED: PROM25TA10 PO (16:26)
[2016-10-30] MEDS ORDERED: PEGF6P SQ (16:26)
[2016-10-30] MEDS ORDERED: ONDA4INJ2 IM (16:56)
[2016-11-11] MEDS ORDERED: MIRTA15 PO (11:24)
[2016-11-11] MEDS ORDERED: IBUP800T23 PO (12:46)
== END 2016-10-10 17:55 | disposition home or self-care (01) ==
LOC: NEPE 14:58
DX: C56.9 Malignant neoplasm of unspecified ovary (principal); C79.9 Secondary malignant neoplasm of unspecified site; G89.3 Neoplasm related pain (acute) (chronic); R18.0 Malignant ascites
CPT/HCPCS: 99283

== ENCOUNTER 2016-10-14 09:53 | Day surgery (SDC) | payer OTHER ==
[~2016-10-14 09:53] MED LIST changes: +PERC5TAB12 PO
[2016-10-14 10:47] VITALS: BP 124/81; PULSE 80; RESP 14; TEMP 97.5; O2SAT 100
[2016-10-14] MEDS ORDERED: LIDOCAINE HCL 1% PF 30 ML VIAL ONE (12:24)
[2016-10-14 12:30] VITALS: BP 114/77; PULSE 74; RESP 16; TEMP 98.6; O2SAT 98
[2016-10-14 12:44] VITALS: BP 95/70; PULSE 75; RESP 16; O2SAT 96
--- NOTE | 2016-10-14 14:58 | RADRPT ---
EXAM DATE/TIME: 10/14/2016 10:47 [facility] COMPARISON: No previous studies available for comparison. INDICATIONS : Ascites. MEDICAL HISTORY : Gastroesophageal reflux disease. Carcinoma, ovarian. Arthritis. Chronic obstructive pulmonary disease . Hypertension. Arthritis. Diabetese. Dyspnea. Asthma. Chest pain. Seizures. Head trauma as a child. Cervical cancer. Ovarian cancer. Anticoagulant therapy. Substance use. GERD. Schizophrenia. Bipolar. Depression. Anxiety. Diabetes. Seizures. Cervical cancer. SURGICAL HISTORY : Tubal ligation. Paracentesis. Port placementiety. ENCOUNTER: Sequela ACUITY: 2 weeks PAIN SCORE: 0/10 LOCATION: Left lower quadrant FLUID: Total volume of 4,000 cc of clear, red fluid was removed. Fluid was discarded. Paracentesis was therapeutic only. Post procedure scanning reveals no hematoma or other complication. TECHNIQUE: 1. Ultrasound guidance for abdominal paracentesis. 2. Paracentesis. The risks, benefits, and alternatives to ultrasound guided paracentesis were explained to the patient in detail including the risk of bleeding and infection. Written and verbal informed consent was obt ained. With the patient on the ultrasound table, ultrasound imaging was used to select the most appropriate approach for paracentesis. Overlying skin was prepped and draped in the usual sterile fashion and wi th a local anesthetic, a dermatotomy was made with an 11 blade scalpel. A 6 [place] [id number]-N-zcatugce ca theter was introduced into the peritoneal cavity and fluid was collected. The patient tolerated the procedure well and left the ultrasound suite in stable condition. CONCLUSION: Uncomplicated ultrasound guided paracentesis. Sharan Galicia MD on October 14, 2016 at 14:57 Board Certified Radiologist. This report was verified electronically.
[2016-10-30] MEDS ORDERED: PROM25TA10 PO (16:26)
[2016-10-30] MEDS ORDERED: PEGF6P SQ (16:26)
[2016-10-30] MEDS ORDERED: ONDA4INJ2 IM (16:56)
[2016-11-11] MEDS ORDERED: MIRTA15 PO (11:24)
[2016-11-11] MEDS ORDERED: IBUP800T23 PO (12:46)
== END 2016-10-14 12:58 | disposition home or self-care (01) ==
LOC: HRAD 09:53 → HRIP 09:55 → HRAD 12:58
PROVIDERS: ATTEND Family Medicine
DX: R18.8 Other ascites (principal); K21.9 Gastro-esophageal reflux disease without esophagitis; I10 Essential (primary) hypertension; J44.9 Chronic obstructive pulmonary disease, unspecified; J45.909 Unspecified asthma, uncomplicated; E11.9 Type 2 diabetes mellitus without complications; Z85.43 Personal history of malignant neoplasm of ovary
CPT/HCPCS: 49083; C1729

== ENCOUNTER 2016-11-14 07:38 | Day surgery (SDC) | payer OTHER ==
[~2016-11-14 07:38] MED LIST changes: -BENZ2TAB PO; -BUSP15TA PO; +MIRTA15 PO; +PEGF6P SQ; -PERC5TAB12 PO; +PROM25TA10 PO; -PROM25TA5 PO; -ZYPR10TA PO
[2016-11-14 08:04] VITALS: BP 128/85; PULSE 80; RESP 14; TEMP 98.3; O2SAT 96
--- NOTE | 2016-11-14 09:26 | RADRPT ---
EXAM DATE/TIME: 11/14/2016 08:14 [facility] COMPARISON: No previous studies available for comparison. INDICATIONS : Ascites. MEDICAL HISTORY : Gastroesophageal reflux disease. Chronic obstructive pulmonary disease. Carcinoma, ovarian. Arthrit is. Hypertension. Arthritis. Diabetese. Dyspnea. Asthma. Chest pain. Seizures. Head trauma as a child . Carcinoma, cervical. Anticoagulant therapy.Schizophrenia. Bipolar. Depression. Anxiety. Diabetes. S eizures. SURGICAL HISTORY : Tubal ligation. Paracentesis. Port placement. ENCOUNTER: Sequela ACUITY: 2 weeks PAIN SCORE: 2/10 LOCATION: Bilateral upper and lower quadrant. AREA EVALUATED: Bilateral upper and lower quadrant. FINDINGS: Imaging of the abdomen and pelvis was performed to evaluate for ascites for possible paracentesis. CONCLUSION: There is not enough fluid for safe paracentesis. Sly Damon MD FACR on November 14, 2016 at 9:23 Board Certified Radiologist. This report was verified electronically.
== END 2016-11-14 10:02 | disposition home or self-care (01) ==
LOC: HRAD 07:38 → HRIP 07:51 → HRAD 10:02
PROVIDERS: ATTEND Obstetrics & Gynecology Gynecologic Oncology
DX: R18.8 Other ascites (principal); C56.9 Malignant neoplasm of unspecified ovary; J44.9 Chronic obstructive pulmonary disease, unspecified; K21.9 Gastro-esophageal reflux disease without esophagitis; I10 Essential (primary) hypertension; E11.9 Type 2 diabetes mellitus without complications; R07.9 Chest pain, unspecified; R56.9 Unspecified convulsions; R06.00 Dyspnea, unspecified; Z79.01 Long term (current) use of anticoagulants
CPT/HCPCS: 76705

== ENCOUNTER 2016-12-01 08:43 | Inpatient (IN) | payer OTHER ==
[~2016-12-01] VITALS: Ht 160 cm; Wt 74.8 kg
[~2016-12-01 08:43] MED LIST changes: -DEXA4TAB PO; -IBUP800T23 PO; -LIDO0.052; -LISI10TA3 PO; -METF500T PO; -MIRTA15 PO; -ONDA1TAB17 PO; -PEGF6P SQ; -PROM25TA10 PO
[2016-12-16] MEDS ORDERED: METF500T PO (14:26)
[2016-12-16] MEDS ORDERED: LISI10TA3 PO (14:27)
[2016-12-29] MEDS ORDERED: METOPROLOL TARTRATE 25 MG TAB PO PRN (05:45)
[2016-12-29] MEDS ORDERED: LACTATED RINGER'S 1000 ML IV PRN (05:45)
[2016-12-29] MEDS ORDERED: POVIDONE IODINE 5% (ANTISEPSIS KIT) 4 APPLICATIONS EACH NARE PRN (05:45)
[2016-12-29] MEDS ORDERED: SODIUM CHLORID 0.9% 500 ML IV PRN (05:45)
[2016-12-29] MEDS ORDERED: CHLORHEXIDINE GLUCONATE 2 % 1 PACK (2 CLOTHS) TOPICAL PRN (05:45)
[2016-12-29] MEDS ORDERED: INSULIN HUMAN REGULAR 1,000 UNITS/10 ML VIAL SQ PRN (05:45)
[2016-12-29] MEDS ORDERED: ceFAZolin 1,000 MG/NS 100 ML IV SCH ×2 (06:00)
[2016-12-29] MEDS ORDERED: SODIUM CHLORIDE FLUSH PRN IV FLUSH (06:00)
[2016-12-29] MEDS ORDERED: HEPARIN SODIUM - SQ 10,000 UNITS/ML VIAL SQ SCH (06:00)
[2016-12-29] MEDS ORDERED: DOXY100C PO (06:03)
[2016-12-29] MEDS ORDERED: BACT800T5 PO (06:03)
[2016-12-29] MEDS ORDERED: MIRTA15 PO (06:03)
[2016-12-29 06:08] VITALS: BP 96/66; PULSE 69; RESP 18; TEMP 98.2; O2SAT 100
[2016-12-29] MEDS ORDERED: MIDAZOLAM HCL 2 MG/2 ML VIAL ONE (07:05)
[2016-12-29] MEDS ORDERED: LIDOCAINE 1%/EPINEPHrine 1:100,000 SOLN 20 ML VIAL ONE (07:05)
[2016-12-29] MEDS ORDERED: DEXAMETHASONE SOD PHOS 4 MG/ML VIAL ONE (07:05)
[2016-12-29] MEDS ORDERED: FAMOTIDINE 20 MG/2 ML VIAL ONE (07:06)
[2016-12-29] MEDS ORDERED: ceFAZolin INJ 1,000 MG VIAL IV ONE (10:14)
[2016-12-29] MEDS ORDERED: PROPOFOL 200 MG/20 ML AMP IV ONE (12:00)
[2016-12-29] MEDS ORDERED: PHENYLEPH/NS 1000 MCG/10 ML SYR IV ONE (12:00)
[2016-12-29] MEDS ORDERED: KETOROLAC TROMETHAMINE 60 MG/2 ML (IM) VIAL IM ONE (12:00)
[2016-12-29] MEDS ORDERED: ONDANSETRON HCL 4 MG/2 ML VIAL IV PUSH ONE (12:00)
[2016-12-29] MEDS ORDERED: LACTATED RINGER'S 1000 ML INJ 2,000 ML IV ONE (12:00)
[2016-12-29] MEDS ORDERED: SODIUM CHLOR 0.9% 250 ML INJ 250 ML IV ONE (12:00)
[2016-12-29] MEDS ORDERED: METOCLOPRAMIDE HCL 10 MG TAB PO PRN (12:30)
[2016-12-29] MEDS ORDERED: LORazepam 0.5 MG TAB PO PRN (12:30)
[2016-12-29] MEDS ORDERED: oxyCODONE/ACETAMINOPHEN 5 MG/325 MG TAB PO PRN (12:30)
[2016-12-29] MEDS ORDERED: ONDANSETRON HCL 4 MG/2 ML VIAL IVP PRN (12:30)
[2016-12-29] MEDS ORDERED: SODIUM CHLORIDE 0.9% FLUSH 10 ML FLUSH IV FLUSH PRN (12:30)
[2016-12-29] MEDS ORDERED: MORPHINE SULFATE 4 MG/ML INJ ONE (12:33)
[2016-12-29] MEDS ORDERED: fentaNYL CITRATE 250 MCG/5 ML AMP ONE (12:33)
[2016-12-29] MEDS ORDERED: *morphine SULFATE 8 MG/ML PERIprocedure ONLY ONE ×2 (12:37→14:03)
[2016-12-29] MEDS ORDERED: DO NOT ADM ANY ANTICOAGULANT DRUGS PRN (13:00)
[2016-12-29] MEDS: KETOROLAC TROMETHAMINE 30 MG/ML (IVP) VIAL IVP SCH ×2 (13:00→18:12)
[2016-12-29] MEDS: SODIUM CHLORIDE FLUSH BID IV FLUSH SCH ×2 (13:00→23:40)
[2016-12-29] MEDS: D5-1/2 NS + KCL 20 MEQ INJ 1,000 ML IV SCH ×2 (13:50→23:41)
[2016-12-29 14:20] VITALS: BP 119/82; PULSE 73; RESP 16; TEMP 97.8; O2SAT 99
[2016-12-29 16:00] VITALS: BP_SYST 139; BP_SYST 143; BP_DIAS 102; BP_DIAS 88; PULSE 73; RESP 16; TEMP 98.6; O2SAT 96
[2016-12-29] MEDS: INSULIN NovoLIN REGULAR SUPPLEMENTAL SCALE SQ SCH ×2 (16:11→20:06)
[2016-12-29] MEDS: oxyCODONE/ACETAMINOPHEN 5 MG/325 MG TAB PO PRN (16:14)
[2016-12-29 16:19] VITALS: O2SAT 95
[2016-12-29] MEDS: diphenhydrAMINE HCL 25 MG CAP PO PRN (16:19)
[2016-12-29 20:00] VITALS: BP 116/85; PULSE 75; RESP 18; TEMP 99.5; O2SAT 97
[2016-12-29] MEDS: QUEtiapine FUMARATE 300 MG TAB PO SCH (23:39)
[2016-12-29] MEDS: LISINOPRIL 10 MG TAB PO SCH (23:39)
[2016-12-29] MEDS: DOXYCYCLINE HYCLATE 100 MG CAP PO SCH (23:39)
[2016-12-29] MEDS: MIRTAZAPINE 15 MG TAB PO SCH (23:39)
[2016-12-29] MEDS: SULFAMETHOXAZOLE-TRIMETHOPRIM DS 800-160 MG TAB PO SCH (23:39)
[2016-12-29] MEDS: SODIUM CHLORIDE 0.9% FLUSH 10 ML FLUSH IV FLUSH SCH (23:40)
[2016-12-30] VITALS (7 sets, daily range): BP systolic 95–134; BP diastolic 57–89; PULSE 75–98; RESP 16–18; TEMP 97.8–98.8; O2SAT 94–99
[2016-12-30] MEDS: KETOROLAC TROMETHAMINE 30 MG/ML (IVP) VIAL IVP SCH ×2 (01:00→07:00)
[2016-12-30] MEDS: INSULIN NovoLIN REGULAR SUPPLEMENTAL SCALE SQ SCH ×4 (07:00→21:00)
[2016-12-30] MEDS ORDERED: OXYC1TAB63 PO (07:15)
[2016-12-30 07:50] LABS: AUTOMATED NEUTROPHIL # 2.6 TH/MM3 (1.8-7.7); BASOPHIL % 0.7 % (0.0-2.0); EOSINOPHIL # 0.1 TH/MM3 (0-0.4); EOSINOPHIL % 0.9 % (0.0-4.0); HEMATOCRIT 31.8 % (35.0-46.0); HEMO FLAGS DIFF FINAL; LYMPH % 44.3 % (9.0-44.0); LYMPHOCYTE # 2.5 TH/MM3 (1.0-4.8); MEAN CORPUSCULAR HEMOGLOBIN 35.1 PG (27.0-34.0); MEAN CORPUSCULAR HGB CONC 33.8 % (32.0-36.0); MONO % 7.6 % (0.0-8.0); NEUT % 46.5 % (16.0-70.0); PLATELET COUNT 237 TH/MM3 (150-450); RED BLOOD COUNT 3.06 MIL/MM3 (4.00-5.30); WHITE BLOOD COUNT 5.6 TH/MM3 (4.0-11.0)
[2016-12-30 08:15] LABS: BICARBONATE 26.9 MEQ/L (21.0-32.0); POTASSIUM 4.6 MEQ/L (3.5-5.1)
[2016-12-30] MEDS: SODIUM CHLORIDE FLUSH BID IV FLUSH SCH ×2 (09:00→21:00)
[2016-12-30] MEDS: SULFAMETHOXAZOLE-TRIMETHOPRIM DS 800-160 MG TAB PO SCH ×2 (09:19→22:02)
[2016-12-30] MEDS: SODIUM CHLORIDE 0.9% FLUSH 10 ML FLUSH IV FLUSH SCH ×2 (09:19→22:03)
[2016-12-30] MEDS: oxyCODONE/ACETAMINOPHEN 5 MG/325 MG TAB PO PRN ×2 (09:20→18:27)
[2016-12-30] MEDS: DOXYCYCLINE HYCLATE 100 MG CAP PO SCH ×2 (10:13→22:02)
[2016-12-30] MEDS: D5-1/2 NS + KCL 20 MEQ INJ 1,000 ML IV SCH ×2 (15:48→22:02)
[2016-12-30] MEDS: diphenhydrAMINE HCL 25 MG CAP PO PRN (20:32)
[2016-12-30] MEDS: QUEtiapine FUMARATE 300 MG TAB PO SCH (22:01)
[2016-12-30] MEDS: MIRTAZAPINE 15 MG TAB PO SCH (22:02)
[2016-12-30] MEDS: LISINOPRIL 10 MG TAB PO SCH (22:02)
[2016-12-31] VITALS: BP 113/82; PULSE 89; RESP 16; TEMP 98.5; O2SAT 96
[2016-12-31] MEDS: D5-1/2 NS + KCL 20 MEQ INJ 1,000 ML IV SCH (04:20)
[2016-12-31 05:25] VITALS: BP 101/65; PULSE 93; RESP 16; TEMP 97.9; O2SAT 97
[2016-12-31] MEDS: oxyCODONE/ACETAMINOPHEN 5 MG/325 MG TAB PO PRN ×2 (05:34→09:48)
[2016-12-31] MEDS: INSULIN NovoLIN REGULAR SUPPLEMENTAL SCALE SQ SCH (06:18)
[2016-12-31 08:00] VITALS: BP 102/67; PULSE 91; RESP 18; TEMP 98.2; O2SAT 97
--- NOTE | 2016-12-31 08:35 | PD.ONC.PN ---
Subjective Subjective Remarks post op day #2 pt in bed without any complaints denies any pain or n/v OOB to chair and bathroom ok to discharge home today Objective Data Date Time Temp Pulse Resp B/P Pulse Ox O2 Delivery O2 Flow Rate FiO2 12/31/16 05:25 97.9 93 16 101/65 97 12/31/16 00:00 98.5 89 16 113/82 96 12/30/16 20:00 98.3 77 16 118/89 97 12/30/16 16:00 97.8 79 16 129/78 94 12/30/16 15:46 94 21 12/30/16 12:00 97.9 98 16 134/81 94 12/30/16 10:25 16 12/31/16 12/31/16 12/31/16 07:00 15:00 23:00 Intake Total 1000 ml Output Total 400 ml Balance 600 ml Result Diagram: 12/30/16 0640 12/30/16 0640 Administered Medications Medications (Trade) Dose Ordered Sig/Arelis Route PRN Reason Start Time Stop Time Status Last Admin Dose Admin Lactated Ringer's (Lr 1000 ml Inj) 1,000 ml @ 30 mls/hr Q24H PRN IV SEE LABEL COMMENTS 12/29/16 05:45 01/01/17 05:44 12/29/16 06:05 Sodium Chloride (NS Flush) 2 ml BID IV FLUSH 12/29/16 09:00 12/29/16 23:40 Doxycycline Hyclate (Vibramycin) 100 mg BID PO 12/29/16 21:00 12/30/16 22:02 Lisinopril (Prinivil) 10 mg HS PO 12/29/16 21:00 12/30/16 22:02 Mirtazapine (Remeron) 15 mg HS PO 12/29/16 21:00 12/30/16 22:02 Quetiapine Fumarate (SEROquel) 300 mg HS PO 12/29/16 21:00 12/30/16 22:01 Trimethoprim/ Sulfamethoxazole 1 tab 1 tab BID PO 12/29/16 21:00 12/30/16 22:02 Potassium Chloride/Dextrose/ Sod Cl (D5-1/2 NS + KCl 20 Meq Inj) 1,000 ml @ 100 mls/hr Q10H IV 12/29/16 12:20 12/30/16 15:48 Sodium Chloride (NS Flush) 2 ml BID IV FLUSH 12/29/16 21:00 12/30/16 22:03 Oxycodone/ Acetaminophen (Percocet 5-325 Mg) 2 tab Q4H PRN PO PAIN SCALE 6 TO 10 12/29/16 12:30 12/31/16 05:34 Diphenhydramine HCl (Benadryl) 25 mg Q6H PRN PO ITCHING 12/29/16 12:30 12/30/16 20:32 Ondansetron HCl (Zofran Inj) 4 mg Q6H PRN IVP NAUSEA OR VOMITING 12/29/16 12:30 12/29/16 16:14 Objective Remarks GENERAL: Well-nourished, well-developed patient. SKIN: Warm and dry. HEAD: Normocephalic. EYES: No scleral icterus. No injection or drainage. CARDIOVASCULAR: Regular rate and rhythm without murmurs. RESPIRATORY: Breath sounds equal bilaterally. No accessory muscle use. GASTROINTESTINAL: Abdomen soft, non-tender, nondistended. SS are C/D/I EXTREMITIES: has papular flesh color rash noted, no s/s of cellulitis or infection MUSCULOSKELETAL: Adequate muscle tone. NEUROLOGICAL: No obvious focal deficit. Awake, alert, and oriented x3. PSYCHIATRIC: Appropriate mood and affect; insight and judgment normal. Assessment/Plan Problem List: (1) Ovarian cancer Status: Acute Plan: S/P RA lap hyst with BSO, omentectomy and tumor debulking OK to discharge home today Percocet script in chart Ok to resume home meds will follow up in [facility]onc clinic in 2 weeks for final pathology continue steroid cream at home for rash Benadryl for itching Attending Statement Dr. Mckeon is in agreement with this plan and discharge. Sasha Blanchard Dec 31, 2016 08:35
[2016-12-31] MEDS: DOXYCYCLINE HYCLATE 100 MG CAP PO SCH (09:47)
[2016-12-31] MEDS: SULFAMETHOXAZOLE-TRIMETHOPRIM DS 800-160 MG TAB PO SCH (09:47)
[2016-12-31] MEDS: diphenhydrAMINE HCL 25 MG CAP PO PRN (09:48)
[2016-12-31] MEDS: SODIUM CHLORIDE 0.9% FLUSH 10 ML FLUSH IV FLUSH SCH (09:49)
[2016-12-31 10:13] VITALS: O2SAT 96
[2016-12-31 12:00] VITALS: BP 106/74; PULSE 80; RESP 16; TEMP 98.4; O2SAT 96
--- NOTE | 2017-01-04 20:52 | MD ---
cc: ROGER LAYNE MD, KELLY L. MD ADMISSION DATE: 12/29/2016 DISCHARGE DATE: 12/31/2016 PROCEDURE 12/29/2016 robotic-assisted en bloc hysterectomy and bilateral salpingo-oophorectomy, omentectomy, resection of tumor as well as additional resection of intraperitoneal tumor nodules and left pelvic excisional lymph node biopsies. DIAGNOSIS Ovarian cancer status post neoadjuvant chemotherapy. HOSPITAL COURSE She did well early in the postoperative period tolerating oral intake, hemodynamically stable. Adequate pain control. Fink catheter removed pending voiding. Ins and outs 700/925. Labs pending. PHYSICAL EXAMINATION VITAL SIGNS: Has been afebrile, pulse 73-80, respirations 16-18, blood pressure 95-143 over 57/88. O2 saturations greater than or equal to 95% while asleep and 98% while awake. GENERAL: Alert and oriented times three. No acute distress. LUNGS: Have basilar rales, otherwise clear. CARDIOVASCULAR: Regular rate and rhythm. ABDOMEN: Soft. Incision is clean and dry. GYNECOLOGIC: No bleeding. EXTREMITIES: Nontender. SCDs in place. ASSESSMENT Postop day #1. Findings at surgery, response to chemotherapy thus far and steps taken to surgery were reviewed. Activity restrictions were again discussed. Questions were answered. She expressed good understanding. PLAN Anticipate she will meet criteria for discharge to home. She is to resume her prior medications. She will have a prescription for Percocet. Our office number is again made available. She is to contact our office to schedule follow up in 2 weeks or she is to contact us should she have any questions or problems between now and the time of scheduled followup. MD ABHI Lorenzo/KK /7:17 AM /8:42 PM
--- NOTE | 2017-01-05 08:03 | MP ---
cc: ROGER LAYNE MD, KELLY L. MD DATE OF SURGERY: 12/29/2016 PREOPERATIVE DIAGNOSIS 1. Ovarian cancer. 2. Status post neoadjuvant chemotherapy. POSTOPERATIVE DIAGNOSIS 1. Ovarian cancer. 2. Status post neoadjuvant chemotherapy. 3. Intraperitoneal adhesions. PROCEDURE Debulking for ovarian cancer via robotic-assisted laparoscopic en bloc hysterectomy, bilateral salpingo-oophorectomy, omentectomy and tumor resection, also with right ureterolysis and left pelvic lymph node excisional biopsies. SURGEON Annie Mckeon. EMBEDDED FIRMWARE ENGINEER [employer] Casework Supervisor. ANESTHESIA General endotracheal. ESTIMATED BLOOD LOSS 200 cc. IV FLUIDS 2000 cc. URINE OUTPUT 300 cc. HISTORY This is a 51-year-old female with ovarian cancer consistent with stage IIIC, biopsy-proven, treated with neoadjuvant Taxol and carboplatin chemotherapy. There has been significant improvement in her CA-125, ascites and measurable disease. She is counseled regarding the potential value of surgery and presents now for that endeavor. She is seen again in the pre-op holding area where the findings and plan for surgery are discussed and reviewed. Questions were answered. She expressed good understanding and wished to move forward. FINDINGS In the peritoneal cavity there had been a good but incomplete response to chemotherapy. There is tumor in the omentum. There is multifocal small tumor implants in the omentum and a few as well in the gastrocolic ligament. The right ovary is enlarged to approximately 7-8 cm. The ureter is densely adherent to the posterolateral aspect of this mass as the mass is partially retroperitonealized and affixed to the right pelvic sidewall. The uterus is grossly normal. The left ovary is approximately 4 cm. There are some adhesions against left pelvic sidewall, some adhesions in the posterior cul-de-sac. Both ovaries appear to have tumor. There are also three enlarged lymph nodes in the left pelvis. There were no appreciably enlarged lymph nodes detected in the right pelvis or the paraaortic region. There are a few peritoneal implants separate from the central tumor. Overall, at the conclusion of the case all significant tumor that could be detected was resected. There were no implants remaining larger than perhaps 2 or 3 mm with some implants on the bowel wall. The parietal peritoneum was fairly clear. The liver and diaphragm edges were smooth. The mesentery was without persistent disease. There were diverticulum noted. STATEMENT OF COMPLEXITY The complexly of this case was increased due to significant adhesions throughout the peritoneal cavity requiring significant additional time to mobilize tissue, reestablish normal anatomy and to accomplish surgical objectives. Modifier should be applied accordingly. DETAILS OF PROCEDURE The patient was taken to the operating room and placed in dorsal lithotomy position. After general endotracheal anesthesia was administered a timeout was undertaken. She was identified by sight recognition and hospital ID mira, and the proposed procedure was reviewed and confirmed. She was carefully positioned in padded Troy stirrups. Her arms were padded and secured to the sides. She was further secured to the operating table with eggcrate padding and tape in an across chest over the shoulder fashion. All sites were noted to be properly aligned with no malalignments or pressure points. She was prepped and draped in sterile fashion, placed in high lithotomy position. The cervix was grasped. The uterine cavity was sounded to approximately 8 cm. The cervix was dilated and the VCare manipulator was inserted and secured in the usual fashion. A Fink catheter was placed in the bladder. She was returned to low lithotomy position. A change of sterile gloves was undertaken. We completed draping and confirmed that an orogastric airway was in the stomach on suction. With manual elevation of the abdominal wall and direct laparoscopic visualization a 5 mm cannula was placed in the left upper quadrant. An atraumatic entry was confirmed. Carbon dioxide gas was insufflated. Entry was gained in the left upper quadrant and blunt and sharp dissection were used to take down adhesions and mobilize the omentum. A 12 mm cannula was placed in the midline above the umbilicus and an 8 mm cannula was placed in the right upper quadrant. The original 5 was exchanged for an 8 mm cannula. She was placed in Trendelenburg position. The small bowel was folded back on its mesenteric root below the omentum. Three Ray-Nicolas sponges were placed around the root of the small bowel mesentery. The robotic system was brought into the operative field and attached in the usual fashion. Monopolar scissors, fenestrated bipolar forceps and ProGrasp manipulators were placed in arms #1, 2 and 3 respectively and I took my place at the surgeon's console. Attention was first directed towards resecting the omental tumor. Nonvascular attachments were taken down with cautery starting near the hepatic flexure with vascular attachments isolated, cauterized with bipolar cautery and transected, and then moving toward the splenic flexure where similarly the omentum was detached. There was some tumor in the distal gastrocolic ligament so the vascular pedicles were isolated, cauterized and transected. Dissection was continued down across the midportion of the transverse colon in a stepwise fashion until the omentum and a portion of the gastrocolic ligament were completely detached from the transverse colon. The distal end of the omentum was adherent to the left ovary and pelvic tumor. There were a few peritoneal nodules that were detected, removed with sharp dissection and placed in the right pericolic gutter for later retrieval. There was no remaining disease of significance in the abdomen and attention was directed toward the pelvis. The right round ligament was isolated, cauterized and transected. The anterior and posterior leafs of the broad ligament were opened. The right ureter was identified and densely adherent to the posterolateral aspect of the mass and it was deviated ventrally so the dissection of the gonadal vessels was carried above the level of the pelvic brim where peritoneum was opened between the gonadal vessels and the ureter and the gonadal vessels were cauterized and transected. Sharp dissection and blunt dissection were used to free the ureter along its course in the pelvis as dissection of the gonadal vessels was carried out proximally to distally toward the uterus and the ureter was freed from its attachments in a stepwise fashion to perform ureterolysis through the pelvis until the ureter could be mobilized laterally and the ovarian mass could be elevated ventrally. Posterior dissection was continued, circumferential dissection, until the right ovarian mass was completely detached from surrounding adhesions. The right vesicouterine peritoneum was dissected off the lower uterine segment and cervix and the posterior peritoneum was opened along the right side of the uterus and cervix. The right uterine vessels were skeletonized, cauterized and transected as were the cardinal, paracervical and uterosacral ligaments. Attention was directed toward the left side. Adhesions were lysed by mobilizing the colon that was adherent to the left pelvic sidewall obstructing the left sidewall structures. Adhesions in the cul-de-sac were taken down. The colon was mobilized from its attachments to the ovary. The left round ligament was isolated, cauterized and transected. The anterior and posterior leafs of the broad ligament were further opened. The left ureter was identified. The left infundibulopelvic ligament was isolated where it was cauterized and transected. The posterior peritoneum was opened along the left side of the uterus and cervix. Additional dissection was used to free adhesions and mobilize the left ovary. The left vesicouterine peritoneum was dissected off the lower uterine segment and cervix. The left uterine vessels were skeletonized, cauterized and transected as were the cardinal, paracervical and uterosacral ligaments. The pelvic lymph node beds and paraaortic lymph node beds were inspected. Three enlarged lymph nodes were detected along the external iliac vessels and in the obturator space, so the paravesical, pararectal and obturator spaces were opened. Sharp dissection and bipolar cautery were used to isolate each of the three prominent lymph nodes and they were removed completely and placed in the right pericolic gutter with the peritoneal implants for later retrieval. Colpotomy was performed, the cervix from the upper vagina. The specimen was withdrawn transvaginally which included uterus, cervix, both tubes and ovaries, omentum and tumor, and was all delivered transvaginally. A pneumo-occluder balloon was placed in the vagina to maintain pneumoperitoneum. A 12 cm EndoCatch was introduced into the vagina and a single Ray-Nicolas with the lymph nodes and peritoneal nodules were placed in the EndoCatch bag and removed transvaginally. The remaining two Ray-Nicolas sponges were removed transvaginally using ring forceps. There were no remaining foreign objects in the peritoneal cavity. Preliminary counts were correct. Instruments 1 and 3 were exchanged for needle drivers as 0 Vicryl suture was introduced. The vaginal cuff was closed starting at the left corner where full-thickness closure incorporated the posterior peritoneum and uterosacral ligament and tied via instrument tie. The closure was held on countertraction as a running continuous closure was carried across the vaginal apex to the contralateral corner where it was similarly affixed, secured and tied. The needle was cut and removed. The pelvis and abdomen were thoroughly irrigated. Inspection revealed no remaining tumor of any significance, reduced only to a few millimeter implants on the bowel wall. Sites were hemostatic. Kyle hemostatic agent was placed across the pelvic structures. The vaginal cuff was well-supported with a good margin between the vaginal cuff and the edge of the bladder, good peristalsis of ureters. It was felt that all reasonable surgical objectives had been completed. The robotic instruments were removed. The robotic system was disengaged from the operative field. I reentered the bedside under sterile condition. The 12 mm fascial defect was closed with 0 Vicryl sutures interrupted using a needle pass apparatus. They were tied securely which rendered the fascia completely airtight and hemostatic. The remaining cannulas were withdrawn. Carbon dioxide gas was removed. 3-0 Vicryl subcutaneous, 3-0 Vicryl subcuticular and Steri-Strips were used to close these incisions. She was returned to dorsal lithotomy position. Pelvic exam confirmed the vaginal cuff was well-supported and cuff line hemostatic, no vaginal lacerations, no remaining foreign objects in the vagina and final counts were correct. She was returned to dorsal supine position and was pending reversal of anesthesia when I left the operating room to precede her to the post-anesthesia care unit. MD ABHI Lorenzo/DAWSON /7:06 AM /7:31 AM
== END 2016-12-31 13:39 | disposition home or self-care (01) | DRG 737 ==
LOC: HSDI 12-29 05:06 → HOCA 12-29 14:35
PROVIDERS: ADMIT Obstetrics & Gynecology Gynecologic Oncology; ATTEND Obstetrics & Gynecology Gynecologic Oncology
PROC: 0DBW4ZZ Excision of Peritoneum, Percutaneous Endoscopic Approach (ICD-10-PCS; 2016-12-29)
PROC: 0DNW4ZZ Release Peritoneum, Percutaneous Endoscopic Approach (ICD-10-PCS; 2016-12-29)
PROC: 0UT2FZZ Resection of Bilateral Ovaries, Via Natural or Artificial Opening With Percutaneous Endoscopic Assistance (ICD-10-PCS; 2016-12-29)
PROC: 0UT7FZZ Resection of Bilateral Fallopian Tubes, Via Natural or Artificial Opening With Percutaneous Endoscopic Assistance (ICD-10-PCS; 2016-12-29)
PROC: 07BC4ZZ Excision of Pelvis Lymphatic, Percutaneous Endoscopic Approach (ICD-10-PCS; 2016-12-29)
PROC: 8E0W4CZ Robotic Assisted Procedure of Trunk Region, Percutaneous Endoscopic Approach (ICD-10-PCS; 2016-12-29)
PROC: 0UT9FZZ Resection of Uterus, Via Natural or Artificial Opening With Percutaneous Endoscopic Assistance (ICD-10-PCS; principal; 2016-12-29 07:11)
DX: C56.9 Malignant neoplasm of unspecified ovary (principal); R18.8 Other ascites; N73.6 Female pelvic peritoneal adhesions (postinfective); Z92.21 Personal history of antineoplastic chemotherapy
CPT/HCPCS: 80048; 82948; 85025; 86850; 86900; 86901; 88305; 88307; 94150; J0690; J1100; J1644; J1885; J2250; J2270; J2370; J2405; J3010; J3480; J7050; J7120

== ENCOUNTER 2016-12-04 08:00 | Day surgery (SDC) | payer OTHER ==
[~2016-12-04 08:00] MED LIST changes: +DEXA4TAB PO; +IBUP800T23 PO; +LIDO0.052; +LISI10TA3 PO; +METF500T PO; +MIRTA15 PO; +ONDA1TAB17 PO; +PEGF6P SQ; +PROM25TA10 PO
--- NOTE | 2016-12-04 09:23 | RADRPT ---
EXAM DATE/TIME: 12/04/2016 08:29 [facility] COMPARISON: US ABDOMEN - LOWER LIMITED, November 14, 2016, 8:14. INDICATIONS : Ascities. MEDICAL HISTORY : Gastroesophageal reflux disease. Carcinoma, ovarian. Arthritis. Chronic SURGICAL HISTORY : Tubal ligation. Paracentesis. Port placementiety. ENCOUNTER: Sequela ACUITY: > 1 year PAIN SCORE: 3/10 LOCATION: Abdomen. AREA EVALUATED: Abdomen. FINDINGS: Imaging of the abdomen and pelvis was performed to evaluate for ascites for possible paracentesis. CONCLUSION: 1. No significant abdominal ascites identified. Lj Damon MD on December 04, 2016 at 9:21 Board Certified Radiologist. This report was verified electronically.
== END 2016-12-04 08:30 | disposition home or self-care (01) ==
LOC: HRAD 08:00 → HRIP 08:01 → HRAD 08:30
PROVIDERS: ATTEND Obstetrics & Gynecology Gynecologic Oncology
DX: R18.8 Other ascites (principal); K21.9 Gastro-esophageal reflux disease without esophagitis; M19.90 Unspecified osteoarthritis, unspecified site; Z85.43 Personal history of malignant neoplasm of ovary; Z53.8 Procedure and treatment not carried out for other reasons
CPT/HCPCS: 76705

== ENCOUNTER → 2016-12-16 | Outpatient (CLI) | payer OTHER ==
[~2016-12-16] MED LIST changes: +CLIN1GEL TOPICAL
--- NOTE | 2016-12-16 14:42 | RADRPT ---
EXAM DATE/TIME: 12/16/2016 13:16 [facility] COMPARISON: [id number] PLCMT, POWERPORT, W US, RIGHT, September 09, 2016, 11:32. CHEST PA & LAT, August 05, 2016, 1 0:41. INDICATIONS : Evaluate for pneumonia, pneumothorax or communicable disease. Pre op hysterectomy. MEDICAL HISTORY : Hypertension. Chronic obstructive pulmonary disease. Diabetes mellitus type II. Asthma, chemother apy, ovarian ca. SURGICAL HISTORY : infusaport ENCOUNTER: Initial ACUITY: 1 day PAIN SCORE: 0/10 LOCATION: Bilateral chest FINDINGS: PA and lateral views of the chest demonstrate the lungs to be symmetrically aerated with stable blunt ing of the right costophrenic angle possibly representing pleural parenchymal scarring or small effus ion. Lungs are otherwise clear. Right IJ Fheezy-n-Ieqa catheter with the tip projecting over the cent ral venous system.. The cardiomediastinal contours are unremarkable. Osseous structures are intact. CONCLUSION: 1. Stable blunting of right costophrenic angle possibly representing pleural parenchymal scarring or small effusion. 2. Lungs are otherwise clear. 3. Right IJ Xbpiol-c-Rras catheter with the tip projecting over the central venous system. Rufino Dyer MD on December 16, 2016 at 14:31 Board Certified Radiologist. This report was verified electronically.
--- NOTE | 2016-12-16 17:05 | EKG ---
Date Performed: 12/16/2016 Time Performed: 13:00:23 PTAGE: 51 years EKG: Sinus rhythm NORMAL ECG Compared to prior tracing no significant change DOCTOR: Wilbur Weber Interpretating Date/Time 12/16/2016 17:04:45
== END ==
LOC: CPRE 12:21
PROVIDERS: ATTEND Obstetrics & Gynecology Gynecologic Oncology
DX: Z01.810 Encounter for preprocedural cardiovascular examination (principal); Z01.811 Encounter for preprocedural respiratory examination; C56.9 Malignant neoplasm of unspecified ovary
CPT/HCPCS: 71020; 93005

== ENCOUNTER 2016-12-22 15:13 | Emergency (ER) | payer OTHER ==
[~2016-12-22] VITALS: Ht 160 cm; Wt 65.0 kg
[~2016-12-22 15:13] MED LIST changes: -CLIN1GEL TOPICAL; -DEXA4TAB PO; -IBUP800T23 PO; -ONDA1TAB17 PO; -PEGF6P SQ
[2016-12-22 15:15] VITALS: BP 113/71; PULSE 81; RESP 16; TEMP 97.8; O2SAT 97
--- NOTE | 2016-12-22 15:24 | PD ---
Physical Exam Time Seen by Provider: 15:23 Narrative 51 y/o female with pruritic rash for one week. Vital signs reviewed. Seen at triage desk. Awaiting bed placement. Data Data Last Documented VS Vital Signs Date Time Temp Pulse Resp B/P Pulse Ox O2 Delivery O2 Flow Rate FiO2 12/22/16 15:15 97.8 81 16 113/71 97 MDM Medical Record Reviewed: Yes Supervised Visit with VISHAL: No Isidro Chen Dec 22, 2016 15:24
[2016-12-22] MEDS ORDERED: LIDOCAINE HCL 1% 50 ML VIAL INFIL ONE (16:30)
[2016-12-22] MEDS ORDERED: CLIN1GEL TOPICAL (16:33)
--- NOTE | 2016-12-22 16:35 | PD ---
HPI Chief Complaint: Skin Problem Time Seen by Provider: 16:14 Travel History International Travel<30 days: No Contact w/Intl Traveler<30days: No Traveled to known affect area: No History of Present Illness HPI 51 YO F with PMH of ovarian cancer, HTN presents to the ED for evaluation of one week history of tender, painful "rising" in the right axilla. Patient endorses previous history of same, states "sometimes 2 or 3 at a time." Denies fever, chills, limitations to range of motion of the extremity. Also complains of pruritic rash of the forearms and the back of the neck. Denies new exposures , pets in the home, new medications. No treatment attempted at home. States that she is to undergo panendoscopy on Thursday, starts Go Lytely on Thursday. PFSH Past Medical History Hx Anticoagulant Therapy: Yes Arthritis: Yes Asthma: Yes Bipolar Disorder: Yes Anxiety: Yes Depression: Yes Heart Rhythm Problems: No (DENIES) Cancer: Yes (CERVIX) Cardiac Catheterization: No Cardiovascular Problems: Yes High Cholesterol: No Chemotherapy: Yes Chest Pain: Yes Congestive Heart Failure: No COPD: Yes Diabetes: Yes Diminished Hearing: No Gastrointestinal Disorders: Yes GERD: Yes Headaches: Yes Heparin Induced Thrombocytopen: No Hypertension: Yes Implanted Vascular Access Dvce: No Respiratory: Yes Immunizations Current: Yes Migraines: Yes Schizophrenia: Yes Seizures: Yes Menopausal: Yes : 4 Para: 3 Miscarriage: 1 Tubal Ligation: Yes Past Surgical History Coronary Artery Bypass Graft: No Gynecologic Surgery: Yes (tubal ligation ) Hysterectomy: Yes (TUBAL) Neurologic Surgery: No Other Surgery: Yes (PARACENTESIS) Social History Alcohol Use: No Tobacco Use: No Substance Use: No Allergies-Medications (Allergen,Severity, Reaction): Coded Allergies: No Known Allergies (Verified , 12/22/16) Reported Meds & Prescriptions Reported Meds & Active Scripts Active Reported Lisinopril 10 Mg Tab 10 Mg PO HS Metformin (Metformin HCl) 500 Mg Tab 500 Mg PO HS With a meal Metoclopramide (Metoclopramide HCl) 10 Mg Tab 10 Mg PO TIDAC Quetiapine (Quetiapine Fumarate) 300 Mg Tab 300 Mg PO HS Review of Systems Except as stated in HPI: all other systems reviewed are Neg Physical Exam Narrative GENERAL: Well-nourished, well-developed pleasant black female in no acute distress. SKIN: Focused skin assessment warm/dry. Pinpoint papular rash distributed over the forearms, back of the neck. Nonblanching. Non-erythematous. Nontender. No interdigital rash. No rash noted groin. No rashes of the waistline. SKIN: There is an indurated area in the right axilla which measures about 1 cm in diameter. It is fluctuant but there is no pointing or drainage. There is a zone of inflammation around it but no lymphangitis. HEAD: Normocephalic. EYES: No scleral icterus. No injection or drainage. NECK: Supple, trachea midline. No JVD or lymphadenopathy. CARDIOVASCULAR: Regular rate and rhythm without murmurs, gallops, or rubs. RESPIRATORY: Breath sounds equal bilaterally. No accessory muscle use. GASTROINTESTINAL: Abdomen soft, non-tender, nondistended. MUSCULOSKELETAL: No cyanosis, or edema. BACK: Nontender without obvious deformity. No CVA tenderness. Data Data Last Documented VS Vital Signs Date Time Temp Pulse Resp B/P Pulse Ox O2 Delivery O2 Flow Rate FiO2 12/22/16 15:15 97.8 81 16 113/71 97 Orders Abscess Culture And Gram Stain (12/22/16 16:25) Lidocaine Pf 1% Inj (Xylocaine-Mpf 1% In (12/22/16 17:00) MDM Medical Decision Making Medical Screen Exam Complete: Yes Emergency Medical Condition: Yes Differential Diagnosis Furuncle versus carbuncle versus abscess versus hidradenitis versus eczema versus scabies versus other Narrative Course 51 YO F with PMH of ovarian cancer, HTN presents to the ED for evaluation of one week history of tender, painful "rising" in the right axilla. Patient endorses previous history of same, states "sometimes 2 or 3 at a time." Denies fever, chills, limitations to range of motion of the extremity. Also complains of pruritic rash of the forearms and the back of the neck. Denies new exposures , pets in the home, new medications. No treatment attempted at home. States that she is to undergo panendoscopy on Thursday, starts Go Lytely on Thursday. Vitals reviewed. Physical exam consistent with axillary abscess but given history hidradenitis also in the differential. I&D abscess was performed. Please see my procedure note for details. Given that the patient is going to start using GoLYTELY this week I opted for a topical Clindamycin prescription twice a day. She is instructed to return to the ED in 2 days for wound check. She is instructed to use Caladryl on her very nonspecific rash. She indicated understanding of instructions and is agreeable care plan. She is stable and discharged home. Procedures Procedure Narrative INCISION AND DRAINAGE OF ABSCESS: The area was prepped and was sterilely draped. A subcutaneous wheal of 1 % Xylocaine with a total number 1.5 mL was used to anesthetize the area properly. A number 11 scalpel was used to make a 1 -cm incision across the area of the abscess. The abscess was drained, complex loculations were broken down, and irrigated with normal saline. Cultures were obtained. Sterile dressing applied. Patient advised to keep the wound clean and dry, return for recheck in 2 days. Diagnosis Primary Impression: Abscess of axilla, right Additional Impression: Pruritic rash Referrals: [facility] Primary Care Physician Patient Instructions: Abscess (ED), Acute Rash (ED), General Instructions Additional Instructions: Rest, hydrate. Apply antibiotic as prescribed. Topical Caldryl on the rash to reduce itch. Alternately you may take 25 mg Benadryl every 6 hours to reduce itch. DO NOT USE BOTH AT THE SAME TIME. Cool baths to avoid worsening of itch. Keep the wound clean, dry and covered. Return to the ED in 48 hours for wound recheck. Follow up with the PCP and scow derrick operator. Return to the ED for any urgent or emergent medical condition. Med/Other Pt SpecificInfo: Prescription(s) given Disposition: 01 DISCHARGE HOME Condition: Stable Lorene Valdivia Dec 22, 2016 16:35
[2016-12-22] MEDS ORDERED: LIDOCAINE HCL 1% 30 ML VIAL INFIL ONE (16:45)
[2016-12-22] MEDS ORDERED: LIDOCAINE HCL 1% PF 30 ML VIAL INFIL ONE (17:00)
== END 2016-12-22 17:41 | disposition home or self-care (01) ==
LOC: NEPK 15:13
DX: L02.411 Cutaneous abscess of right axilla (principal); L29.9 Pruritus, unspecified; B95.62 Methicillin resistant Staphylococcus aureus infection as the cause of diseases classified elsewhere; C56.9 Malignant neoplasm of unspecified ovary; I10 Essential (primary) hypertension
CPT/HCPCS: 10060; 86403; 87070; 87186; 87205

== ENCOUNTER 2017-01-04 17:28 | Observation (INO) | payer MEDICAID, OTHER ==
[~2017-01-04 17:28] MED LIST changes: +BACT800T5 PO; +DOXY100C PO; -LIDO0.052; +OXYC1TAB63 PO; -PROM25TA10 PO
[2017-01-04 17:34] VITALS: BP 117/73; PULSE 82; RESP 20; TEMP 98.4; O2SAT 97
[2017-01-04] MEDS ORDERED: IBUP800T23 PO (17:55)
[2017-01-04] MEDS ORDERED: FAMOTIDINE 20 MG/2 ML VIAL IV PUSH STA (18:08)
[2017-01-04] MEDS ORDERED: diphenhydrAMINE HCL 50 MG/ML VIAL IV PUSH ONE (18:15)
--- NOTE | 2017-01-04 18:55 | PD ---
HPI Chief Complaint: Allergic/Adverse Reaction Time Seen by Provider: 17:51 Travel History International Travel<30 days: No Contact w/Intl Traveler<30days: No Traveled to known affect area: No History of Present Illness HPI Is a 51-year-old woman who presents to the emergency department complaining of tongue swelling. She has known ovarian cancer that presented after she had recurrent bouts of ascites. She completed neoadjuvant chemotherapy. On December 29 she just underwent laparoscopic hysterectomy with BSO and omentectomy as well as tumor debulking with Dr. Norris cortes. She been healing well. She presents to the emergency department now after developing some tongue swelling. She reports she had a little bit of vomiting, took a nap, woke up with tongue swelling. She denies any difficulty swallowing. No shortness of breath. She has sees it she bumps it appeared on her arms while she was in the hospital. No clear hives. She has not had similar symptoms before. She is on lisinopril. History Past Medical History Narrative Medical Ovarian CA, status post neoadjuvant chemotherapy and recent surgery Hypertension Diabetes Asthma Tetanus Vaccination: > 5 Years Menopausal: Yes : 4 Para: 3 Social History Alcohol Use: No Tobacco Use: No Allergies-Medications (Allergen,Severity, Reaction): Coded Allergies: *MDRO Multi-Drug Resistant Organism (Verified Adverse Reaction, Unknown, ) MRSA (arm) 12/22/16 Reported Meds & Prescriptions Reported Meds & Active Scripts Active Oxycodone-Acetaminophen 5-325 mg Tab 1 Tab PO Q4H PRN Reported Ibuprofen 800 Mg Tab 800 Mg PO Q8H PRN Mirtazapine 15 Mg Tab 15 Mg PO HS Lisinopril 10 Mg Tab 10 Mg PO HS Metformin (Metformin HCl) 500 Mg Tab 500 Mg PO HS With a meal Metoclopramide (Metoclopramide HCl) 10 Mg Tab 10 Mg PO TIDAC PRN Quetiapine (Quetiapine Fumarate) 300 Mg Tab 300 Mg PO HS Review of Systems Except as stated in HPI: all other systems reviewed are Neg Physical Exam Narrative GENERAL: Gen. a well-appearing 51-year-old woman, no acute distress. SKIN: Focused skin assessment warm/dry. HEAD: Atraumatic. Normocephalic. EYES: Pupils equal and round. No scleral icterus. No injection or drainage. ENT: No nasal bleeding or discharge. Mucous membranes pink and moist. Bilateral tongue swelling. No hoarse voice or muffled voice. NECK: Trachea midline. No JVD. CARDIOVASCULAR: Regular rate and rhythm. No murmur appreciated. RESPIRATORY: No accessory muscle use. Clear to auscultation. Breath sounds equal bilaterally. GASTROINTESTINAL: Abdomen soft, non-tender, nondistended. Hepatic and splenic margins not palpable. Well-healing incisions. Minimal abdominal tenderness. MUSCULOSKELETAL: No obvious deformities. No clubbing. No cyanosis. No edema. NEUROLOGICAL: Awake and alert. No obvious cranial nerve deficits. Motor grossly within normal limits. Normal speech. PSYCHIATRIC: Appropriate mood and affect; insight and judgment normal. Data Data Last Documented VS Vital Signs Date Time Temp Pulse Resp B/P Pulse Ox O2 Delivery O2 Flow Rate FiO2 01/04/17 17:34 98.4 82 20 117/73 97 Room Air Orders Complete Blood Count With Diff (01/04/17 18:08) Comprehensive Metabolic Panel (01/04/17 18:08) Iv Access Insert/Monitor (01/04/17 18:08) Famotidine Inj (Pepcid Inj) (01/04/17 18:08) Diphenhydramine Inj (Benadryl Inj) (01/04/17 18:15) MDM Medical Decision Making Medical Screen Exam Complete: Yes Emergency Medical Condition: Yes Differential Diagnosis Allergic reaction, angioedema, other Narrative Course Medical decision making Is a 51-year-old woman presents to the emergency department complaining of tongue swelling, likely angioedema, she is on lisinopril, looks well. She had an episode of vomiting as well. She looks overall well. Abdominal incisions appear to be healing well. Suspect angioedema. I spoke with Dr. Muro, okay with steroids if there is possible benefit. We'll give any histamines and steroids. Given the involvement of the tongue, and her comorbidities, we'll recommend observation overnight. Patient will be signed out to the oncoming provider 7 PM to follow-up on the results of labs, and for disposition. Tahir Huitron MD Jan 04, 2017 18:55
[2017-01-04] MEDS ORDERED: methylPREDNISolone SOD SUCC 125 MG/2 ML VIAL IV PUSH ONE (19:00)
--- NOTE | 2017-01-04 19:06 | PD ---
Physical Exam Narrative General: The patient is a well-developed well-nourished female in no acute distress. Head and Neck exam: Head is normocephalic atraumatic. Eyes: EOMI, pupils are equal round and reactive to light. Nose: Midline septum with pink mucous membranes Mouth: Dentition unremarkable. Moist mucus membranes. Posterior oropharynx is not erythematous. No tonsillar hypertrophy. Uvula midline. Airway patent. The patient has some swelling noted of her tongue. No swelling noted in the posterior oropharynx. Neck: No palpable lymphadenopathy. No nuchal rigidity. No thyromegaly. Cardiovascular: Regular rate and rhythm without murmurs, gallops, or rubs. Lungs: Clear to auscultation bilaterally. No wheezes, rhonchi, or rales. Abdomen: Soft, without tenderness to palpation in all 4 quadrants of the abdomen. No guarding, rebound, or rigidity. Normal bowel sounds are audible. No tenderness on palpation of McBurney's point. The patient has Steri-Strips laparoscopic incisions noted from her recent surgery. The patient has no swelling or drainage noted from her postoperative sites. Extremities: No clubbing, cyanosis, or edema. 2+ pulses in all 4 extremities. No calf tenderness on palpation. Neurologic Exam: Grossly nonfocal. Skin Exam: No rash noted. Intact skin that is warm and dry. Data Data Last Documented VS Vital Signs Date Time Temp Pulse Resp B/P Pulse Ox O2 Delivery O2 Flow Rate FiO2 01/04/17 17:34 98.4 82 20 117/73 97 Room Air Orders Complete Blood Count With Diff (01/04/17 18:08) Comprehensive Metabolic Panel (01/04/17 18:08) Iv Access Insert/Monitor (01/04/17 18:08) Famotidine Inj (Pepcid Inj) (01/04/17 18:08) Diphenhydramine Inj (Benadryl Inj) (01/04/17 18:15) Methylprednisolone So Succ Inj (Solumedr (01/04/17 19:00) Labs Laboratory Tests Test 01/04/17 18:30 White Blood Count 6.2 TH/MM3 Red Blood Count 3.14 MIL/MM3 Hemoglobin 11.0 GM/DL Hematocrit 32.8 % Mean Corpuscular Volume 104.6 FL Mean Corpuscular Hemoglobin 35.0 PG Mean Corpuscular Hemoglobin 33.4 % Concent Red Cell Distribution Width 17.6 % Platelet Count 292 TH/MM3 Mean Platelet Volume 6.9 FL Neutrophils (%) (Auto) 41.0 % Lymphocytes (%) (Auto) 43.5 % Monocytes (%) (Auto) 10.6 % Eosinophils (%) (Auto) 4.3 % Basophils (%) (Auto) 0.6 % Neutrophils # (Auto) 2.5 TH/MM3 Lymphocytes # (Auto) 2.7 TH/MM3 Monocytes # (Auto) 0.7 TH/MM3 Eosinophils # (Auto) 0.3 TH/MM3 Basophils # (Auto) 0.0 TH/MM3 CBC Comment DIFF FINAL Differential Comment Sodium Level 135 MEQ/L Potassium Level 4.8 MEQ/L Chloride Level 104 MEQ/L Carbon Dioxide Level 23.8 MEQ/L Anion Gap 7 MEQ/L Blood Urea Nitrogen 37 MG/DL Creatinine 1.28 MG/DL Estimat Glomerular Filtration 53 ML/MIN Rate Random Glucose 85 MG/DL Calcium Level 9.0 MG/DL Total Bilirubin 0.2 MG/DL Aspartate Amino Transf 14 U/L (AST/SGOT) Alanine Aminotransferase 10 U/L (ALT/SGPT) Alkaline Phosphatase 75 U/L Total Protein 7.5 GM/DL Albumin 3.4 GM/DL [facility] Medical Record Reviewed: Yes Supervised Visit with VISHAL: No Narrative Course During the course of the patients emergency department visit, the patients history, examination, and differential diagnosis were reviewed with the patient. The patient had IV access obtained and blood work sent for analysis. The patient's case was checked out to me by Dr. Huitron at the conclusion of his shift. Please see his complete history and physical. The patient presented after an nap with a swollen tongue. It was suspected that the patient had angioedema related to lisinopril use. The patient's recent history is complicated by being diagnosed with ovarian cancer status post total abdominal hysterectomy with bilateral salpingo-oophorectomy 6 days ago. The patient was initially provided Benadryl 50 mg IV, famotidine 20 mg IV, Solu- Medrol 125 mg IV. The patients laboratory studies were reviewed and remarkable for a white count of 6.2, hemoglobin 11, platelets 292 with 10.6 monocytes, eosinophils 4.3, CMP is remarkable for sodium of 135, BUN 37, creatinine 1.28, GFR 53, AST 14. The patient will be admitted to the hospital for observation regarding an allergic reaction versus angioedema. The patient on reexamination continues to have swelling of her tongue noted, however no swelling of the posterior oropharynx. The patients results were discussed with the patient, including the plan of care. I explained that further testing and/ or monitoring is indicated based on the patients history, examination, and/ or laboratory findings. Therefore, I recommended admission for additional evaluation. The patient expressed understanding and was agreeable with this plan. The patient was admitted to the hospital in stable condition and sent to a bed under the care of the [facility] service. Diagnosis Primary Impression: Tongue edema Additional Impression: Pruritus Admitting Information Admitting Physician Requests: Observation Anayeli Villalta MD Jan 04, 2017 19:06
[2017-01-04 19:12] LABS: AUTOMATED NEUTROPHIL # 2.5 TH/MM3 (1.8-7.7); BASOPHIL % 0.6 % (0.0-2.0); EOSINOPHIL # 0.3 TH/MM3 (0-0.4); EOSINOPHIL % 4.3 % (0.0-4.0); HEMATOCRIT 32.8 % (35.0-46.0); HEMO FLAGS DIFF FINAL; LYMPH % 43.5 % (9.0-44.0); LYMPHOCYTE # 2.7 TH/MM3 (1.0-4.8); MEAN CELL VOLUME 104.6 FL (80.0-100.0); MEAN CORPUSCULAR HGB CONC 33.4 % (32.0-36.0); MONO % 10.6 % (0.0-8.0); PLATELET COUNT 292 TH/MM3 (150-450); RED BLOOD COUNT 3.14 MIL/MM3 (4.00-5.30); RED CELL DISTRIBUTION WIDTH 17.6 % (11.6-17.2); WHITE BLOOD COUNT 6.2 TH/MM3 (4.0-11.0)
[2017-01-04 19:16] LABS: ANION GAP 7 MEQ/L (5-15); AST (GOT) 14 U/L (15-37); BICARBONATE 23.8 MEQ/L (21.0-32.0); BLOOD UREA NITROGEN 37 MG/DL (7-18); CHLORIDE 104 MEQ/L (98-107); GLOMERULAR FILTRATION RATE 53 ML/MIN (>89); POTASSIUM 4.8 MEQ/L (3.5-5.1); SODIUM (NA) 135 MEQ/L (136-145)
[2017-01-04 19:17] LABS: ALT (GPT) 10 U/L (10-53)
[2017-01-04 19:20] LABS: ALKALINE PHOSPHATASE 75 U/L (45-117); TOTAL BILIRUBIN ADULT 0.2 MG/DL (0.2-1.0)
[2017-01-04 20:00] VITALS: BP 115/75; PULSE 70; RESP 16; O2SAT 97
[2017-01-04] MEDS ORDERED: MAGNESIUM HYDROXIDE SUSP 30 ML CUP PO PRN (20:00)
[2017-01-04] MEDS ORDERED: BISACODYL 10 MG SUPP RECTAL PRN (20:00)
[2017-01-04] MEDS ORDERED: SENNOSIDES 8.6 MG TAB PO PRN (20:00)
[2017-01-04] MEDS ORDERED: DEXTROSE 50% IN WATER 50 ML VIAL(D50) IV PRN (20:00)
[2017-01-04] MEDS ORDERED: SODIUM CHLORIDE 0.9% FLUSH 10 ML FLUSH IV FLUSH PRN (20:00)
[2017-01-04] MEDS ORDERED: LACTULOSE SYRUP 20 GM/30 ML CUP PO PRN (20:00)
[2017-01-04] MEDS ORDERED: ACETAMINOPHEN 325 MG TAB PO PRN (20:00)
[2017-01-04] MEDS ORDERED: GLUCAGON 1 MG/ML VIAL OTHER PRN (20:00)
[2017-01-04] MEDS ORDERED: ONDANSETRON HCL 4 MG/2 ML VIAL IVP PRN (20:00)
[2017-01-04] MEDS ORDERED: MORPHINE SULFATE 4 MG/ML INJ IV PRN (20:00)
--- NOTE | 2017-01-04 20:07 | HHI.HP ---
[facility] Yakelin Nichols MD Admission Diagnosis Angioedema Diagnoses: (1) Angioedema Diagnosis: Principal (2) ROSHAN (acute kidney injury) Diagnosis: Principal (3) HTN (hypertension) Diagnosis: Principal (4) Ovarian cancer Diagnosis: Principal (5) DM (diabetes mellitus) Diagnosis: Principal Travel History International Travel<30 Days: No Contact w/Intl Traveler <30 Da: No Traveled to Known Affected Are: No History of Present Illness This is a 51 year-old female w/ a PMH of HTN, DM, Asthma and Ovarian CA s/p Chemo who presented to the ER w/ complaints of tongue swelling starting earlier this afternoon. States she woke up from a nap and was having difficulty talking , then noticed her tongue was swollen. No h/o similar symptoms in the past. Has been on multiple medications recently including antibiotics s/p Hysterectomy and Omentectomy 12/29/16, takes Lisinopril at home for HTN. On arrival, BP 117/73, HR 82, O2 sat 97% on RA, Afebrile. CBC at baseline. Creatinine 1.28, produces 0.7-1 12/30/16. S/p Solu-Medrol, Benadryl and Pepcid in ER w/ some improvement. Review of Systems Except as stated in HPI: all other systems reviewed are Neg ROS: 14 point review of systems otherwise negative. Past Family Social History Past Medical History PMH: HTN, DM, Asthma and Ovarian CA s/p Chemo Past Surgical History PAST SURGICAL HISTORY: Hysterectomy/Omentectomy, Port Placement Allergies: Coded Allergies: *MDRO Multi-Drug Resistant Organism (Verified Adverse Reaction, Unknown, ) MRSA (arm) 12/22/16 Family History PAST FAMILY HISTORY: Reviewed. No h/o DM or CAD Social History PAST SOCIAL HISTORY: Negative for alcohol, tobacco or drugs. Physical Exam Vital Signs Vital Signs Date Time Temp Pulse Resp B/P Pulse Ox O2 Delivery O2 Flow Rate FiO2 01/04/17 17:34 98.4 82 20 117/73 97 Room Air Physical Exam PE: GENERAL: Pleasant middle-aged black female in no acute distress. at bedside. HEENT: PERRLA, EOMI. No scleral icterus or conjunctival pallor. No lid lag or facial droop. Enlarged tongue, no difficulty with speech, no airway compromise. CARDIOVASCULAR: Regular rate and rhythm. No obvious murmurs to auscultation. No chest tenderness to palpation. RESPIRATORY: No obvious rhonchi or wheezing. Clear to auscultation. Breath sounds equal bilaterally. GASTROINTESTINAL: Abdomen soft, non-tender, nondistended. BS normal. MUSCULOSKELETAL: Extremities without clubbing, cyanosis, or edema. No obvious deformities. NEUROLOGICAL: Awake, alert and oriented x4. No focal neurologic deficits. Moving both upper and lower extremities spontaneously. Laboratory Laboratory Tests Test 01/04/17 18:30 White Blood Count 6.2 Red Blood Count 3.14 Hemoglobin 11.0 Hematocrit 32.8 Mean Corpuscular Volume 104.6 Mean Corpuscular Hemoglobin 35.0 Mean Corpuscular Hemoglobin 33.4 Concent Red Cell Distribution Width 17.6 Platelet Count 292 Mean Platelet Volume 6.9 Neutrophils (%) (Auto) 41.0 Lymphocytes (%) (Auto) 43.5 Monocytes (%) (Auto) 10.6 Eosinophils (%) (Auto) 4.3 Basophils (%) (Auto) 0.6 Neutrophils # (Auto) 2.5 Lymphocytes # (Auto) 2.7 Monocytes # (Auto) 0.7 Eosinophils # (Auto) 0.3 Basophils # (Auto) 0.0 CBC Comment DIFF FINAL Differential Comment Sodium Level 135 Potassium Level 4.8 Chloride Level 104 Carbon Dioxide Level 23.8 Anion Gap 7 Blood Urea Nitrogen 37 Creatinine 1.28 Estimat Glomerular Filtration 53 Rate Random Glucose 85 Calcium Level 9.0 Total Bilirubin 0.2 Aspartate Amino Transf 14 (AST/SGOT) Alanine Aminotransferase 10 (ALT/SGPT) Alkaline Phosphatase 75 Total Protein 7.5 Albumin 3.4 Result Diagram: 01/04/17182901/04/171829 Assessment and Plan Problem List: (1) Angioedema ICD Code: T78.3XXA Status: Acute (2) ROSHAN (acute kidney injury) ICD Code: N17.9 Status: Acute (3) HTN (hypertension) ICD Code: I10 Status: Acute (4) Ovarian cancer ICD Code: C56.9 Status: Acute (5) DM (diabetes mellitus) ICD Code: E11.9 Status: Acute Assessment and Plan A/P: 1. Angioedema: unclear etiology, likely Lisinopril, instructed patient to discontinue Lisinopril upon discharge. S/p Benadryl, Solu-Medrol and Pepcid in ER, will continue w/ this regimen. No airway compromise. 2. ROSHAN: Creatinine 1.28, previously 0.72 on 12/30/16. IVF for hydration, repeat labs in am. 3. HTN: Controlled. Discontinue Lisinopril secondary to angioedema. Monitor BP. 4. Ovarian CA: Following w/ Dr. Mckeon, s/p Chemo and Hysterectomy/ Omentectomy 12/29/16. 5. DM: Sliding scale w/ Accu-Cheks, Hold Metformin in light of renal insufficiency. 6. DVT Prophylaxis: SCD/Teds. 7. Social work for d/c planning as needed. 8. Case discussed w/ ER physician at length. Khloe Hall MD Jan 04, 2017 20:07
[2017-01-04] MEDS: SODIUM CHLOR 0.9% 1000 ML INJ 1,000 ML IV SCH (20:30)
[2017-01-04 21:17] VITALS: BP 110/61; PULSE 72; RESP 18; TEMP 98.1; O2SAT 97
[2017-01-05] MEDS: methylPREDNISolone SOD SUCC 40 MG/1 ML VIAL IV PUSH SCH ×3 (00:16→14:34)
[2017-01-05] MEDS: diphenhydrAMINE HCL 50 MG/ML VIAL IV PUSH SCH ×3 (00:16→14:35)
[2017-01-05] MEDS: DOCUSATE SODIUM 50 MG/SENNA 8.6 MG TAB PO SCH ×2 (00:17→10:08)
[2017-01-05] MEDS: SODIUM CHLORIDE 0.9% FLUSH 10 ML FLUSH IV FLUSH SCH ×2 (00:17→09:00)
[2017-01-05] MEDS: INSULIN ASPART SUPPLEMENTAL SCALE SQ SCH ×3 (00:39→11:00)
[2017-01-05 03:57] VITALS: BP 104/59; PULSE 82; RESP 18; TEMP 98.1; O2SAT 96
[2017-01-05] MEDS ORDERED: FAMOTIDINE 20 MG/2 ML VIAL IV PUSH SCH (06:00)
[2017-01-05] MEDS: SODIUM CHLOR 0.9% 1000 ML INJ 1,000 ML IV SCH ×2 (06:08→14:35)
[2017-01-05 09:17] VITALS: BP 131/84; PULSE 83; RESP 16; TEMP 98.5; O2SAT 92
--- NOTE | 2017-01-05 10:11 | HHI.PR ---
Subjective Remarks Follow up for angioedema. The patient reports significant improvement of her tongue/lip swelling. She does still have some tongue swelling and slightly slurred speech. Denies any difficulty breathing, shortness of breath, odynophagia/dysphagia. She wants to go home. Extensively counseled on avoiding all BRANDYN/ARBs. Objective Vitals Vital Signs Date Time Temp Pulse Resp B/P Pulse Ox O2 Delivery O2 Flow Rate FiO2 01/05/17 09:17 98.5 83 16 131/84 92 01/05/17 03:57 98.1 82 18 104/59 96 01/04/17 21:17 98.1 72 18 110/61 97 01/04/17 20:00 70 16 115/75 97 Room Air 01/04/17 17:34 98.4 82 20 117/73 97 Room Air I/O 01/04/17 01/04/17 01/04/17 01/05/17 01/05/17 01/05/17 07:00 15:00 23:00 07:00 15:00 23:00 Intake Total 200 ml 200 ml Balance 200 ml 200 ml Intake Oral 200 ml 200 ml Result Diagram: 01/04/17182901/04/171829 Objective Remarks GENERAL: Well-nourished, well-developed pleasant middle aged female patient in [facility]. SKIN: Warm and dry. HEENT: Normocephalic. Atraumatic. Pupils equal and round. Mucous membranes pink and moist. Minimal tongue edema. No lip edema. Posterior oropharynx wnl without tonsillar edema. CARDIOVASCULAR: Regular rate and rhythm. S1, S2 noted. No murmur appreciated. Right chest wall port accessed. RESPIRATORY: No accessory muscle use. Clear to auscultation. Breath sounds equal bilaterally. GASTROINTESTINAL: Abdomen soft, non-tender, nondistended. Normoactive bowel sounds x4. MUSCULOSKELETAL: No obvious deformities. Extremities without clubbing, cyanosis , or edema. NEUROLOGICAL: Awake and alert. No obvious cranial nerve deficits. Motor grossly within normal limits. Normal speech. PSYCHIATRIC: Appropriate mood and affect; insight and judgment normal. Medications and IVs Current Medications Medications (Trade) Dose Ordered Sig/Arelis Route Start Time Stop Time Status Last Admin (SoluMEDROL INJ) 40 mg Q6HR IV PUSH 01/05/17 00:00 01/05/17 06:09 (Benadryl Inj) 50 mg Q6H IV PUSH 01/05/17 01:00 01/05/17 06:08 (Pepcid Inj) 20 mg Q12H IV PUSH 01/05/17 06:00 01/05/17 06:08 (D50w (Vial) Inj) 50 ml UNSCH PRN IV 01/04/17 20:00 Glucagon 1 mg 1 mg UNSCH PRN OTHER 01/04/17 20:00 (NS 1000 ml Inj) 1,000 ml @ 100 mls/hr Q10H IV 01/04/17 20:30 01/05/17 06:08 (NS Flush) 2 ml UNSCH PRN IV FLUSH 01/04/17 20:00 (NS Flush) 2 ml BID IV FLUSH 01/04/17 21:00 01/05/17 00:17 (Zofran Inj) 4 mg Q6H PRN IVP 01/04/17 20:00 (Tylenol) 650 mg Q6H PRN PO 01/04/17 20:00 (Morphine Inj) 2 mg Q3H PRN IV 01/04/17 20:00 (Lisa-Colace) 1 tab BID PO 01/04/17 21:00 01/05/17 00:17 (Milk Of Magnesia Liq) 30 ml Q12H PRN PO 01/04/17 20:00 (Senokot) 17.2 mg Q12H PRN PO 01/04/17 20:00 (Dulcolax Supp) 10 mg DAILY PRN RECTAL 01/04/17 20:00 (Lactulose Liq) 30 ml DAILY PRN PO 01/04/17 20:00 A/P Problem List: (1) Angioedema ICD Code: T78.3XXA Status: Acute (2) ROSHAN (acute kidney injury) ICD Code: N17.9 Status: Acute (3) HTN (hypertension) ICD Code: I10 Status: Acute (4) Ovarian cancer ICD Code: C56.9 Status: Acute (5) DM (diabetes mellitus) ICD Code: E11.9 Status: Acute Assessment and Plan 51 year-old female w/ a PMH of HTN, DM, Asthma and Ovarian CA s/p Chemo who presented to the ER w/ complaints of tongue swelling starting earlier this afternoon. Angioedema: suspect secondary to Lisinopril, instructed patient to discontinue Lisinopril. No airway compromise. Continue Benadryl 50mg IV q6h, Famotidine 20mg IV q12h, Solumedrol 40mg IV q6h. Symptoms improving. ROSHAN: Creatinine 1.28, previously 0.72 on 12/30/16. Given IVF for hydration, repeat labs today pending. HTN: Controlled. Discontinued Lisinopril secondary to angioedema. Monitor BP. Ovarian CA: Following w/ Dr. Mckeon, s/p Chemo and Hysterectomy/Omentectomy 12/29. DM: Sliding scale w/ Accu-Cheks, Hold Metformin in light of renal insufficiency. DVT Prophylaxis: SCD/Teds. Discharge Planning Possible discharge later this afternoon if continued clinical improvement. 1515hrs: Patient reassessed, no further tongue swelling. She is tolerating oral intake, no dysphagia/odynophagia. O2 sat stable on room air. Renal function much improved with Cr 1.02. The patient wants to go home. Prescriptions sent to [place] outpatient pharmacy. Discussed with RN. Discharge patient to home Condition on discharge: Improved Heart Healthy/Diabetic Diet as tolerated Ad Denae activity Rx written: Benadryl, Zantac, Prednisone taper Follow-up with primary care physician within 1 week Mag Rich PA-C Jan 05, 2017 10:11
[2017-01-05] MEDS ORDERED: LACTIC ACID (AMMONIUM LACTATE) 12% LOTION 225 GM BTL TOPICAL SCH (10:15)
[2017-01-05] MEDS ORDERED: SODIUM CHLORIDE 0.65% NASAL SPRAY 45 ML BTL EACH NARE SCH (10:15)
[2017-01-05 12:55] LABS: AUTOMATED NEUTROPHIL # 5.4 TH/MM3 (1.8-7.7); BASOPHIL % 0.2 % (0.0-2.0); EOSINOPHIL % 0.1 % (0.0-4.0); HEMATOCRIT 31.5 % (35.0-46.0); HEMO FLAGS DIFF FINAL; LYMPH % 20.3 % (9.0-44.0); LYMPHOCYTE # 1.5 TH/MM3 (1.0-4.8); MEAN CELL VOLUME 103.9 FL (80.0-100.0); MEAN CORPUSCULAR HEMOGLOBIN 35.1 PG (27.0-34.0); MEAN CORPUSCULAR HGB CONC 33.7 % (32.0-36.0); MONO % 4.8 % (0.0-8.0); NEUT % 74.6 % (16.0-70.0); PLATELET COUNT 269 TH/MM3 (150-450); RED BLOOD COUNT 3.03 MIL/MM3 (4.00-5.30); RED CELL DISTRIBUTION WIDTH 17.9 % (11.6-17.2); WHITE BLOOD COUNT 7.2 TH/MM3 (4.0-11.0)
[2017-01-05 13:37] LABS: ANION GAP 6 MEQ/L (5-15); AST (GOT) 12 U/L (15-37); BICARBONATE 23.9 MEQ/L (21.0-32.0); BLOOD UREA NITROGEN 28 MG/DL (7-18); CHLORIDE 106 MEQ/L (98-107); GLOMERULAR FILTRATION RATE 69 ML/MIN (>89); POTASSIUM 4.7 MEQ/L (3.5-5.1); SODIUM (NA) 136 MEQ/L (136-145)
[2017-01-05 13:38] LABS: ALT (GPT) 10 U/L (10-53)
[2017-01-05 13:40] LABS: ALKALINE PHOSPHATASE 76 U/L (45-117); TOTAL BILIRUBIN ADULT 0.2 MG/DL (0.2-1.0)
[2017-01-05 14:42] VITALS: BP 114/80; PULSE 83; RESP 16; TEMP 98.7; O2SAT 94
[2017-01-05] MEDS ORDERED: ZANT150T2 PO (15:12)
[2017-01-05] MEDS ORDERED: PRED10PA PO (15:12)
[2017-01-05] MEDS ORDERED: DIPH25CA PO (15:12)
--- NOTE | 2017-01-05 15:13 | HHI.DCPOC ---
Discharge Care Plan Diagnosis: (1) Angioedema (2) Tongue edema Goals to Promote Your Health * To prevent worsening of your condition and complications * To maintain your health at the optimal level Directions to Meet Your Goals Take your medications as prescribed Follow your dietary instruction Follow activity as directed Keep your appointments as scheduled Take your immunizations and boosters as scheduled If your symptoms worsen call your PCP, if no PCP go to Urgent Care Center or Emergency Room Smoking is Dangerous to Your Health. Avoid second hand smoke Call the 24-hour hour crisis hotline for domestic abuse at Mag Rich PA-C Jan 05, 2017 3:13 pm
== END 2017-01-05 16:02 | disposition home or self-care (01) ==
LOC: NEPE 17:28 → NEDA 19:46 → NEPHCDU 20:56
PROVIDERS: ADMIT Hospitalist; ATTEND Hospitalist
DX: R60.9 Edema, unspecified (principal); I10 Essential (primary) hypertension; E11.9 Type 2 diabetes mellitus without complications; N17.9 Acute kidney failure, unspecified; C56.9 Malignant neoplasm of unspecified ovary; R18.8 Other ascites; J45.909 Unspecified asthma, uncomplicated; Z92.21 Personal history of antineoplastic chemotherapy; Z90.710 Acquired absence of both cervix and uterus
CPT/HCPCS: 80053; 82948; 85025; 96361; 96372; 96374; 96375; 96376; 99285; G0378; J1200; J1815; J2920; J2930; J7030

== ENCOUNTER 2017-01-15 09:47 | Emergency (ER) | payer MEDICAID ==
[~2017-01-15] VITALS: Ht 160 cm; Wt 65.0 kg
[~2017-01-15 09:47] MED LIST changes: -BACT800T5 PO; +DIPH25CA PO; -DOXY100C PO; +IBUP800T23 PO; -LISI10TA3 PO; +PRED10PA PO; +ZANT150T2 PO
[2017-01-15 09:50] VITALS: BP 117/81; PULSE 81; RESP 15; TEMP 98.2; O2SAT 98
--- NOTE | 2017-01-15 10:24 | PD ---
HPI . low back pain Chief Complaint: Back/ Neck Pain or Injury Time Seen by Provider: 10:23 Travel History International Travel<30 days: No Contact w/Intl Traveler<30days: No Traveled to known affect area: No History of Present Illness HPI 51-year-old female with chronic low back pain here with complaints of low back pain. Patient tells me that she usually amylase with a walker, however she forgot it and her daughter's car and she accidentally slipped and feels that she hurt her back. She is reporting back pain in the L4-L5 area and tells me that she has slipped disc in this area. She denies any bowel or bladder dysfunction. She denies any saddle anesthesia. She rates her pain as moderate without any radiation. PFSH Past Medical History Hx Anticoagulant Therapy: Yes Arthritis: Yes Asthma: No Autoimmune Disease: No Blood Disorders: No Bipolar Disorder: Yes Anxiety: No Depression: No (hx of depression) Heart Rhythm Problems: No Cancer: Yes (hx cancer cervix and ovary) Cardiac Catheterization: No Cardiovascular Problems: No High Cholesterol: No Chemotherapy: Yes (in august of 2016) Chest Pain: No Congestive Heart Failure: No COPD: No Cerebrovascular Accident: No Diabetes: Yes Diminished Hearing: No Endocrine: No Gastrointestinal Disorders: Yes (ULCER) GERD: Yes Genitourinary: Yes (hysterectomy, ovary cancer, cervical cancer) Headaches: Yes Hepatitis: No Hiatal Hernia: No Heparin Induced Thrombocytopen: No Hypertension: Yes Immune Disorder: No Implanted Vascular Access Dvce: Yes Kidney Stones: No Musculoskeletal: No Neurologic: No Psychiatric: Yes (bipolar and hx of depression) Reproductive: Yes (cervical and ovary cancer and hysterectomy) Respiratory: No Immunizations Current: Yes Migraines: Yes Radiation Therapy: No Renal Failure: No Schizophrenia: Yes Seizures: No Sickle Cell Disease: No Sleep Apnea: No Thyroid Disease: No Ulcer: Yes ?: Not Menopausal: Yes : 4 Para: 3 Miscarriage: 1 Tubal Ligation: Yes Past Surgical History AICD: No Arteriovenous Shunt: No Body Medical Devices: right chest port was implanted in august 2016 for chemo Coronary Artery Bypass Graft: No Gynecologic Surgery: Yes (tubal ligation / hyst 01/08) Hysterectomy: Yes Insulin Pump: No Joint Replacement: No Neurologic Surgery: No Pacemaker: No Thoracic Surgery: Yes (PORT PLACEMENT) Other Surgery: Yes (PARACENTESIS) Social History Alcohol Use: No Tobacco Use: No Substance Use: No Allergies-Medications (Allergen,Severity, Reaction): Coded Allergies: lisinopril (Unverified Allergy, Severe, angioedema, 01/06/17) *MDRO Multi-Drug Resistant Organism (Verified Adverse Reaction, Unknown, ) MRSA (arm) 12/22/16 Reported Meds & Prescriptions Reported Meds & Active Scripts Active Diphenhydramine (Diphenhydramine HCl) 25 Mg Cap 50 Mg PO Q6H PRN Do not drive while taking this medication. Take 2 tabs (50mg) every 6 hours x7days or until symptoms completely resolved. Prednisone (21) 10 mg tab Dose Pack (Prednisone) 10 Mg Pack 10 Mg PO DIRECTED Zantac (Ranitidine HCl) 150 Mg Tab 150 Mg PO BID Oxycodone-Acetaminophen 5-325 mg Tab 1 Tab PO Q4H PRN Reported Ibuprofen 800 Mg Tab 800 Mg PO Q8H PRN Mirtazapine 15 Mg Tab 15 Mg PO HS Metformin (Metformin HCl) 500 Mg Tab 500 Mg PO HS With a meal Metoclopramide (Metoclopramide HCl) 10 Mg Tab 10 Mg PO TIDAC PRN Quetiapine (Quetiapine Fumarate) 300 Mg Tab 300 Mg PO HS Review of Systems General / Constitutional: No: Fever Eyes: No: Visual changes HENT: No: Headaches Cardiovascular: No: Chest Pain or Discomfort Respiratory: No: Shortness of Breath Gastrointestinal: No: Abdominal Pain Genitourinary: No: Dysuria Musculoskeletal: Positive: Pain (lower back pain) Skin: No Rash Neurologic: No: Weakness Psychiatric: No: Depression Endocrine: No: Polydipsia Hematologic/Lymphatic: No: Easy Bruising Physical Exam Narrative GENERAL: AAO x 3, no acute distress, Well-nourished, well-developed patient. SKIN: Warm and dry. No visible rashes or bruising. No bruising to the spine HEAD: Normocephalic and atraumatic. EYES: No scleral icterus. No injection or drainage. EOM intact, PERRLA ENT: No nasal drainage noted. Mucous membranes pink. Airway patent. NECK: Supple, trachea midline. No JVD. CARDIOVASCULAR: Regular rate and rhythm without murmurs, gallops, or rubs. RESPIRATORY: Breath sounds equal bilaterally. No accessory muscle use. No rhonchi or rales. GASTROINTESTINAL: Abdomen soft, non-tender, nondistended. No rebound or guarding EXTREMITIES: No cyanosis or edema. BACK: Nontender without obvious deformity. No drop off . Tenderness to the paraspinal muscles on the left and right of the lower spine, ambulatory. Patient able to get up and down from exam table without any difficulty NEURO: CN II-12 intact, shower attendant strength normal b/l, UE and LE 5/5, no focal deficits PSYCH: AAO x 3, normal affect. Data Data Last Documented VS Vital Signs Date Time Temp Pulse Resp B/P (MAP) Pulse Ox O2 Delivery O2 Flow Rate FiO2 01/15/17 09:50 98.2 81 15 117/81 (93) 98 MDM Medical Decision Making Medical Screen Exam Complete: Yes Emergency Medical Condition: Yes Medical Record Reviewed: Yes Differential Diagnosis Acute on chronic back pain, lumbar radiculopathy, less likely spinal fracture Narrative Course 51-year-old female here with complaints of acute on chronic back pain. On examination there are no gross abnormalities other than tenderness to the paraspinal musculature. I will go ahead and provide her with some Norflex here in the ED. She is already taking pain medications at home. I recommend she continue these and follow up with her primary care provider. Patient verbalized understanding of instructions, questions were answered, and thanked me for their care. I advised them if their condition worsens, please return to the nearest emergency room for further care. Diagnosis Primary Impression: Low back ache Qualified Codes: M54.5 - Low back pain Patient Instructions: General Instructions Additional Instructions: Please return to emergency department if your symptoms return or worsen. Follow up with your primary care provider. Take medications as prescribed. Med/Other Pt SpecificInfo: No Change to Meds Disposition: 01 DISCHARGE HOME Condition: Stable Dorcas Loyd Jan 15, 2017 10:23
[2017-01-15] MEDS ORDERED: ORPHENADRINE INJ 60 MG/2 ML AMP IM ONE (10:45)
== END 2017-01-15 10:55 | disposition home or self-care (01) ==
LOC: NEPK 09:47
DX: M54.5 Low back pain (principal); G89.29 Other chronic pain; M13.80 Other specified arthritis, unspecified site; F31.9 Bipolar disorder, unspecified; E11.9 Type 2 diabetes mellitus without complications; K21.9 Gastro-esophageal reflux disease without esophagitis; I10 Essential (primary) hypertension; F20.9 Schizophrenia, unspecified; Z79.899 Other long term (current) drug therapy
CPT/HCPCS: 96372; 99284; J2360

== ENCOUNTER 2017-04-01 13:04 | Emergency (ER) | payer MEDICAID ==
[~2017-04-01 13:04] MED LIST changes: +IBUP1TAB7 PO; -IBUP800T23 PO
[2017-04-01 13:06] VITALS: BP 126/80; PULSE 89; RESP 20; TEMP 99; O2SAT 98
[2017-04-01] MEDS ORDERED: BACL10TA PO (15:01)
[2017-04-01] MEDS ORDERED: LIDO1PAD52 TOPICAL (15:01)
--- NOTE | 2017-04-01 15:04 | PD ---
HPI Chief Complaint: Musculoskeletal Complaint Time Seen by Provider: 15:00 Travel History International Travel<30 days: No Contact w/Intl Traveler<30days: No Traveled to known affect area: No History of Present Illness HPI This is a 51-year-old female with history of chronic lower back pain secondary to degenerative changes. She reports over the past week or lower back pain has been worse. The pain is an aching pain that is worse with movement. Denies any radicular symptoms, urinary troubles, bowel or bladder incontinence, saddle anesthesia, flank pain, abdominal pain, nausea or vomiting, unintentional weight loss, fevers or chills. She does report a history of ovarian cancer currently under the treatment of oncologist Dr. Mckeon. She has been using ibuprofen but her pain persists. She was seen as an outpatient at an urgent care center and had an x-ray of her lumbar spine which didn't reveal any acute abnormalities. No other complaints PFSH Past Medical History Hx Anticoagulant Therapy: Yes Arthritis: Yes Asthma: No Autoimmune Disease: No Blood Disorders: No Bipolar Disorder: Yes Anxiety: No Depression: No (hx of depression) Heart Rhythm Problems: No Cancer: Yes (hx cancer cervix and ovary) Cardiac Catheterization: No Cardiovascular Problems: No High Cholesterol: No Chemotherapy: Yes (in august of 2016) Chest Pain: No Congestive Heart Failure: No COPD: No Cerebrovascular Accident: No Diabetes: Yes Diminished Hearing: No Endocrine: No Gastrointestinal Disorders: Yes (ULCER) GERD: Yes Genitourinary: Yes (hysterectomy, ovary cancer, cervical cancer) Headaches: Yes Hepatitis: No Hiatal Hernia: No Heparin Induced Thrombocytopen: No Hypertension: Yes Immune Disorder: No Implanted Vascular Access Dvce: Yes Kidney Stones: No Musculoskeletal: No Neurologic: No Psychiatric: Yes (bipolar and hx of depression) Reproductive: Yes (cervical and ovary cancer and hysterectomy) Respiratory: No Immunizations Current: Yes Migraines: Yes Radiation Therapy: No Renal Failure: No Schizophrenia: Yes Seizures: No Sickle Cell Disease: No Sleep Apnea: No Thyroid Disease: No Ulcer: Yes ?: Not Menopausal: Yes : 4 Para: 3 Miscarriage: 1 Tubal Ligation: Yes Past Surgical History AICD: No Arteriovenous Shunt: No Body Medical Devices: right chest port was implanted in august 2016 for chemo Coronary Artery Bypass Graft: No Gynecologic Surgery: Yes (tubal ligation / hyst 01/08) Hysterectomy: Yes Insulin Pump: No Joint Replacement: No Neurologic Surgery: No Pacemaker: No Thoracic Surgery: Yes (PORT PLACEMENT) Other Surgery: Yes (PARACENTESIS) Social History Alcohol Use: No Tobacco Use: Yes Substance Use: No Allergies-Medications (Allergen,Severity, Reaction): Coded Allergies: lisinopril (Unverified Allergy, Severe, angioedema, 01/06/17) *MDRO Multi-Drug Resistant Organism (Verified Adverse Reaction, Unknown, ) MRSA (arm) 12/22/16 Reported Meds & Prescriptions Reported Meds & Active Scripts Active Reported Ibuprofen 800 Mg Tab 800 Mg PO Q8H PRN Mirtazapine 15 Mg Tab 15 Mg PO HS Review of Systems Except as stated in HPI: all other systems reviewed are Neg Physical Exam Narrative GENERAL: Well-nourished female in no acute distress SKIN: Warm and dry. HEAD: Atraumatic. Normocephalic. EYES: Pupils equal and round. No scleral icterus. No injection or drainage. ENT: No nasal bleeding or discharge. Mucous membranes pink and moist. NECK: Trachea midline. No JVD. CARDIOVASCULAR: Regular rate and rhythm. No murmur appreciated. RESPIRATORY: No accessory muscle use. Clear to auscultation. Breath sounds equal bilaterally. GASTROINTESTINAL: Abdomen soft, non-tender, nondistended. Hepatic and splenic margins not palpable. MUSCULOSKELETAL: No obvious deformities. No clubbing. No cyanosis. No edema. Full muscle strength in lower extremities NEUROLOGICAL: Awake and alert. No obvious cranial nerve deficits. Motor grossly within normal limits. Normal speech. PSYCHIATRIC: Appropriate mood and affect; insight and judgment normal. Data Data Last Documented VS Vital Signs Date Time Temp Pulse Resp B/P (MAP) Pulse Ox O2 Delivery O2 Flow Rate FiO2 04/01/17 13:06 99.0 89 20 126/80 (95) 98 Room Air MDM Medical Decision Making Medical Screen Exam Complete: Yes Emergency Medical Condition: Yes Medical Record Reviewed: Yes Differential Diagnosis Chronic lower back pain, acute exacerbation, metastasis, spinal stenosis Narrative Course Physical examination is benign. I suspect an acute exacerbation of chronic lower back pain. Recommended continued NSAID use. She'll be discharged with a short course of baclofen and Lidoderm patches. Diagnosis Primary Impression: Chronic lower back pain Qualified Codes: M54.5 - Low back pain; G89.29 - Other chronic pain Additional Instructions: Continue ibuprofen. Medication as needed. Follow-up with primary care. Return for any emergent medical conditions. Med/Other Pt SpecificInfo: Prescription(s) given Scripts Baclofen (Baclofen) 10 Mg Tab 10 MG PO Q8HR, #20 TAB 0 Refills Prov: Silva Camarena MD 04/01/17 Lidocaine Patch 12 HR (Lidocaine Patch 12 HR) 5 % Patch 1 PATCH TOPICAL DAILY Y for PAIN, #1 BOX 1 Refill Remove patch after 12 hours Prov: Silva Camarena MD 04/01/17 Disposition: 01 DISCHARGE HOME Condition: Stable Isidro Chen Apr 01, 2017 15:04
== END 2017-04-01 15:18 | disposition home or self-care (01) ==
LOC: NEPK 13:04
DX: M54.5 Low back pain (principal); G89.29 Other chronic pain; Z72.0 Tobacco use; Z85.41 Personal history of malignant neoplasm of cervix uteri
CPT/HCPCS: 99284